=== PATIENT | male | born 1965 | race African-American/Black ===

== ENCOUNTER 2022-01-10 00:20 | Inpatient (IN) | payer OTHER ==
--- NOTE | 2022-01-10 01:55 | ED ---
Recheck HPI - General Chief Complaint: Extremity Problem,Nontraumatic Stated Complaint: Leg swelling,Cough Time Seen by Provider: 01/10/22 01:53 Source: patient, RN notes reviewed, old records reviewed Mode of arrival: ambulatory Limitations: no limitations - History of Present Illness Initial Comments: this is a 56-year-old male to the emergency departmentF for evaluation. Patient coming in for exam. Patient's presented today for evaluation chest pain lower extremity edema and pain MD Complaint: abnormal lab -: days(s) Returns Today for: persistent/worsening pain related to initial visit Symptoms Since Prior Visit: worsening pain, worsening swelling Associated Symptoms: none Treatments Prior to Arrival: other (0) - Related Data Allergies Allergy/AdvReac Type Severity Reaction Status Date / Time No Known Allergies Allergy Verified 01/10/22 00:40 Review of Systems ROS Statement: Those systems with pertinent positive or pertinent negative responses have been documented in the HPI. ROS Other: All systems not noted in ROS Statement are negative. Past Medical History Past Medical History: No Reported History History of Any Multi-Drug Resistant Organisms: None Reported Past Surgical History: No Surgical Hx Reported Past Psychological History: No Psychological Hx Reported Smoking Status: Current every day smoker Past Alcohol Use History: Occasional Past Drug Use History: None Reported General Exam Limitations: no limitations General appearance: alert, in no apparent distress Head exam: Present: atraumatic, normocephalic, normal inspection Eye exam: Present: normal appearance, PERRL, EOMI. Absent: scleral icterus, conjunctival injection, periorbital swelling ENT exam: Present: normal exam, mucous membranes moist Neck exam: Present: normal inspection. Absent: tenderness, meningismus, lymphadenopathy Respiratory exam: Present: normal lung sounds bilaterally, wheezes, decreased breath sounds. Absent: respiratory distress, rales, rhonchi, stridor Cardiovascular Exam: Present: normal rhythm, tachycardia, normal heart sounds. Absent: systolic murmur, diastolic murmur, rubs, gallop, clicks GI/Abdominal exam: Present: soft, normal bowel sounds. Absent: distended, tenderness, guarding, rebound, rigid Extremities exam: Present: tenderness, normal capillary refill, pedal edema, joint swelling. Absent: calf tenderness Back exam: Present: normal inspection Neurological exam: Present: alert, oriented X3, CN II-XII intact Psychiatric exam: Present: normal affect, normal mood Skin exam: Present: warm, dry, intact, normal color. Absent: rash Course Vital Signs 01/10/22 00:41 Temperature 97.8 F Pulse Rate 108 H Respiratory 22 Rate Blood Pressure 182/119 - Reevaluation(s) Reevaluation #1: 01/10/22 02:41 medical record is reviewed Reevaluation #2: 01/10/22 03:50 Symptoms unchanged here in the ER Reevaluation #3: 01/10/22 03:50 Patient informed results questions answered - Consultations Consultation #1: Spoke with bhavya who agreed to admit the patient Medical Decision Making - Medical Decision Making 56 male DF for evaluation of severe COPD, likely CHF severe bilateral traumatic edema swelling and pain. Patient will be admitted for diuresis and pain control - Lab Data Result diagrams: 01/10/22 01:24 01/10/22 01:24 Lab Results 01/10/22 01/10/22 01/10/22 Range/Units 01:24 01:24 01:24 WBC 6.1 (3.8-10.6) k/uL RBC 4.98 (4.30-5.90) m/uL Hgb 12.4 L (13.0-17.5) gm/dL Hct 40.6 (39.0-53.0) % MCV 81.6 (80.0-100.0) fL MCH 24.9 L (25.0-35.0) pg MCHC 30.5 L (31.0-37.0) g/dL RDW 18.0 H (11.5-15.5) % Plt Count 229 (150-450) k/uL MPV 9.8 Neutrophils % 58 % Lymphocytes % 26 % Monocytes % 8 % Eosinophils % 5 % Basophils % 2 % Neutrophils # 3.5 (1.3-7.7) k/uL Lymphocytes # 1.6 (1.0-4.8) k/uL Monocytes # 0.5 (0-1.0) k/uL Eosinophils # 0.3 (0-0.7) k/uL Basophils # 0.1 (0-0.2) k/uL Hypochromasia Marked Anisocytosis Slight Microcytosis Slight PT 12.7 H (9.0-12.0) sec INR 1.2 H (<1.2) APTT 24.7 (22.0-30.0) sec D-Dimer 1.26 H (<0.60) mg/L FEU Sodium 136 L (137-145) mmol/L Potassium 5.2 H (3.5-5.1) mmol/L Chloride 106 (98-107) mmol/L Carbon Dioxide 19 L (22-30) mmol/L Anion Gap 11 mmol/L BUN 19 (9-20) mg/dL Creatinine 0.91 (0.66-1.25) mg/dL Est GFR (CKD-EPI)AfAm >90 (>60 ml/min/1.73 sqM) Est GFR (CKD-EPI)NonAf >90 (>60 ml/min/1.73 sqM) Glucose 110 H (74-99) mg/dL Calcium 8.3 L (8.4-10.2) mg/dL Magnesium 1.6 (1.6-2.3) mg/dL Total Bilirubin 2.0 H (0.2-1.3) mg/dL AST 101 H (17-59) U/L ALT 28 (4-49) U/L Alkaline Phosphatase 327 H (38-126) U/L Troponin I (0.000-0.034) ng/mL NT-Pro-B Natriuret Pep pg/mL Total Protein 7.9 (6.3-8.2) g/dL Albumin 3.6 (3.5-5.0) g/dL 01/10/22 01/10/22 Range/Units 01:24 01:24 WBC (3.8-10.6) k/uL RBC (4.30-5.90) m/uL Hgb (13.0-17.5) gm/dL Hct (39.0-53.0) % MCV (80.0-100.0) fL MCH (25.0-35.0) pg MCHC (31.0-37.0) g/dL RDW (11.5-15.5) % Plt Count (150-450) k/uL MPV Neutrophils % % Lymphocytes % % Monocytes % % Eosinophils % % Basophils % % Neutrophils # (1.3-7.7) k/uL Lymphocytes # (1.0-4.8) k/uL Monocytes # (0-1.0) k/uL Eosinophils # (0-0.7) k/uL Basophils # (0-0.2) k/uL Hypochromasia Anisocytosis Microcytosis PT (9.0-12.0) sec INR (<1.2) APTT (22.0-30.0) sec D-Dimer (<0.60) mg/L FEU Sodium (137-145) mmol/L Potassium (3.5-5.1) mmol/L Chloride (98-107) mmol/L Carbon Dioxide (22-30) mmol/L Anion Gap mmol/L BUN (9-20) mg/dL Creatinine (0.66-1.25) mg/dL Est GFR (CKD-EPI)AfAm (>60 ml/min/1.73 sqM) Est GFR (CKD-EPI)NonAf (>60 ml/min/1.73 sqM) Glucose (74-99) mg/dL Calcium (8.4-10.2) mg/dL Magnesium (1.6-2.3) mg/dL Total Bilirubin (0.2-1.3) mg/dL AST (17-59) U/L ALT (4-49) U/L Alkaline Phosphatase (38-126) U/L Troponin I <0.012 (0.000-0.034) ng/mL NT-Pro-B Natriuret Pep 3610 pg/mL Total Protein (6.3-8.2) g/dL Albumin (3.5-5.0) g/dL - EKG Data -: EKG Interpreted by Me (EKG shows sinus tachycardia 107 VA 120 QRS 106 QTc 437) - Radiology Data Radiology results: report reviewed (Chest x-rays negative for acute disease), image reviewed Disposition Clinical Impression: Venous stasis, Edema of lower extremity, COPD exacerbation, CHF (congestive heart failure) Disposition: ADMITTED IP TO THIS [facility] Condition: Good Is patient prescribed a controlled substance at d/c from ED?: No Referrals: None,Stated [Primary Care Provider] - 1-2 days Time of Disposition: 03:50
[2022-01-10 02:18] LABS: Anisocytosis Slight; Basophils # (A) 0.1 k/uL (0-0.2); Basophils % (A) 2 %; Eosinophils # (A) 0.3 k/uL (0-0.7); Eosinophils % (A) 5 %; HCT 40.6 % (39.0-53.0); HGB 12.4 gm/dL (13.0-17.5); Hypochromasia Marked; Lymphocytes # (A) 1.6 k/uL (1.0-4.8); Lymphocytes % (A) 26 %; MCH 24.9 pg (25.0-35.0); MCHC 30.5 g/dL (31.0-37.0); MCV 81.6 fL (80.0-100.0); Mean Platelet Volume 9.8; Microcytosis Slight; Monocytes # (A) 0.5 k/uL (0-1.0); Monocytes % (A) 8 %; Neutrophils # (A) 3.5 k/uL (1.3-7.7); Neutrophils % (A) 58 %; Platelet Count 229 k/uL (150-450); RBC 4.98 m/uL (4.30-5.90); WBC 6.1 k/uL (3.8-10.6)
[2022-01-10 02:27] LABS: INR 1.2 (<1.2); Partial Thromboplastin Time 24.7 sec (22.0-30.0); Prothrombin Time 12.7 sec (9.0-12.0)
[2022-01-10 02:39] LABS: ALT 28 U/L (4-49); African American GFR (CKD) >90 (>60 ml/min/1.73 sqM); Anion Gap 11 mmol/L; Blood Urea Nitrogen 19 mg/dL (9-20); Calcium 8.3 mg/dL (8.4-10.2); Carbon Dioxide 19 mmol/L (22-30); Chloride 106 mmol/L (98-107); Glucose 110 mg/dL (74-99); Non-African American GFR(CKD) >90 (>60 ml/min/1.73 sqM); Sodium 136 mmol/L (137-145)
--- NOTE | 2022-01-10 02:39 | XR ---
EXAMINATION TYPE: XR chest 1V portable DATE OF EXAM: 01/10/2022 COMPARISON: NONE HISTORY: Short of breath. Cough TECHNIQUE: Single view FINDINGS: Heart is enlarged. No heart failure. There are no hilar masses lungs are clear of consolida tion. The bony thorax is intact. There are some calcified costal cartilage. IMPRESSION: Cardiomegaly. No active cardiopulmonary disease. No heart failure.
[2022-01-10 02:41] LABS: AST 101 U/L (17-59); Albumin 3.6 g/dL (3.5-5.0); Alkaline Phosphatase 327 U/L (38-126); Magnesium 1.6 mg/dL (1.6-2.3); Potassium 5.2 mmol/L (3.5-5.1); Total Protein 7.9 g/dL (6.3-8.2)
[2022-01-10] MEDS ORDERED: IPRATROPIUM-ALBUTEROL 3 ML NEB INHALATION PRN (03:40)
[2022-01-10] MEDS ORDERED: FUROSEMIDE 10 MG/ML 4 ML VIAL IV ONE (03:45)
[2022-01-10] MEDS ORDERED: MORPHINE SULFATE 4 MG/ML SYRINGE IV PRN (03:51)
--- NOTE | 2022-01-10 08:10 | US ---
EXAMINATION TYPE: US venous doppler duplex LE DATE OF EXAM: 01/10/2022 7:45 AM COMPARISON: NONE CLINICAL HISTORY: dvt. Bilateral leg swelling. No hx dvt. Not on blood thinners SIDE PERFORMED: Bilateral TECHNIQUE: The lower extremity deep venous system is examined utilizing real time linear array sonog cesar with graded compression, doppler sonography and color-flow sonography. VESSELS IMAGED: Common Femoral Vein Deep Femoral Vein Greater Saphenous Vein * Femoral Vein Popliteal Vein Small Saphenous Vein * Proximal Calf Veins (* superficial vessels) Bilateral groin lymph nodes seen Suboptimal visualization due to edema Right Leg: Negative for DVT Left Leg: Negative for DVT IMPRESSION: 1. Bilateral lower extremity ultrasound negative for deep venous thrombosis. 2. Inguinal lymphadenopathy is present.
--- NOTE | 2022-01-10 08:53 | P.CRDCN ---
History of Present Illness Consult date: 01/10/22 Chief complaint: Bilateral lower extremities edema History of present illness: The patient is a very pleasant 56-year-old -[place] gentleman with a past medical history significant for borderline diabetes and overweight who presented to the hospital complaining of bilateral lower extremities edema for the last the patient also has been experiencing cough not productive of any sputum. No chest pain or chest discomfort. He was experiencing with the edema he was experiencing increasing shortness of breath. He stated that he gained weight about 20 pounds within the last several months. No history of congestive heart failure. He decided to come to the emergency department for further investigation. He underwent an EKG which showed sinus tachycardia. NT proBNP came in to be elevated. He also had d-dimer came in to be elevated but no further investigation like computed tomography scan or VQ scan was done. The patient was seen and evaluated this morning. He definitely has severe bilateral lower extremities pitting edema. He does have diminished breathing sounds bilaterally but no crackles year. A chest x-ray did not show any evidence of heart failure. No history of congestive heart failure and no coronary artery disease or history of cardiomyopathy/CHF or cardiac arrhythmia and he never seen any industrial engineering analyst before. He was started on Lasix IV. An echocardiogram is also in process to be done later on today. Past Medical History Past Medical History: No Reported History History of Any Multi-Drug Resistant Organisms: None Reported Past Surgical History: No Surgical Hx Reported Past Psychological History: No Psychological Hx Reported Smoking Status: Current every day smoker Past Alcohol Use History: Occasional Past Drug Use History: None Reported Medications and Allergies Allergies Allergy/AdvReac Type Severity Reaction Status Date / Time No Known Allergies Allergy Verified 01/10/22 00:40 Physical Exam Vitals: Vital Signs Temp Pulse Resp BP 01/10/22 00:41 97.8 F 108 H 22 182/119 Intake and Output 01/09/22 01/10/22 01/10/22 22:59 06:59 14:59 Other: Weight 122.924 kg - Constitutional General appearance: no acute distress - Respiratory Respiratory: bilateral: CTA - Cardiovascular Rhythm: regular Abnormal Heart Sounds: systolic murmur Results 01/10/22 01:24 01/10/22 01:24 Cardiac Enzymes 01/10/22 01/10/22 Range/Units 01:24 01:24 AST 101 H (17-59) U/L Troponin I <0.012 (0.000-0.034) ng/mL Coagulation 01/10/22 Range/Units 01:24 PT 12.7 H (9.0-12.0) sec APTT 24.7 (22.0-30.0) sec CBC 01/10/22 Range/Units 01:24 WBC 6.1 (3.8-10.6) k/uL RBC 4.98 (4.30-5.90) m/uL Hgb 12.4 L (13.0-17.5) gm/dL Hct 40.6 (39.0-53.0) % Plt Count 229 (150-450) k/uL Comprehensive Metabolic Panel 01/10/22 Range/Units 01:24 Sodium 136 L (137-145) mmol/L Potassium 5.2 H (3.5-5.1) mmol/L Chloride 106 (98-107) mmol/L Carbon Dioxide 19 L (22-30) mmol/L BUN 19 (9-20) mg/dL Creatinine 0.91 (0.66-1.25) mg/dL Glucose 110 H (74-99) mg/dL Calcium 8.3 L (8.4-10.2) mg/dL AST 101 H (17-59) U/L ALT 28 (4-49) U/L Alkaline Phosphatase 327 H (38-126) U/L Total Protein 7.9 (6.3-8.2) g/dL Albumin 3.6 (3.5-5.0) g/dL Current Medications Generic Name Dose Route Start Last Admin Trade Name Freq PRN Reason Stop Dose Admin Albuterol/Ipratropium 3 ml 01/10/22 03:40 Ipratropium-Albuterol 3 Ml Neb INHALATION RT-QID PRN Shortness Of Breath Or Wheezing Furosemide 40 mg 01/10/22 08:00 Furosemide 10 Mg/Ml [address] [facility] Morphine Sulfate 4 mg 01/10/22 03:51 Morphine Sulfate 4 Mg/Ml Syringe IV Q4HR PRN Severe Pain (Scale 7 to 10) Intake and Output 01/09/22 01/10/22 01/10/22 22:59 06:59 14:59 Other: Weight 122.924 kg 01/10/22 01:24 01/10/22 01:24 Assessment and Plan Assessment: Assessment Severe bilateral lower extremities edema and shortness of breath Congestive heart failure exacerbation with evidence of right more than left hear t failure Abnormal d-dimer. Rule out pulmonary embolic Borderline diabetes Plan Rule out acute coronary event. Obtain serial cardiac enzymes Rule out pulmonary embolism. Obtain a CTA of the chest Continue IV diuretics for the lower extremities edema Obtain an echocardiogram was Doppler Follow-up with the patient
[2022-01-10] MEDS: FUROSEMIDE 10 MG/ML 4 ML VIAL IV SCH ×3 (08:58→23:12)
--- NOTE | 2022-01-10 09:48 | CT ---
CT CHEST FOR PULMONARY EMBOLISM. EXAMINATION TYPE: CT angio chest DATE OF EXAM: 01/10/2022 INDICATION: elevated d-dimer CT DLP: 643.9 mGycm, Automated exposure control for dose reduction was used. CONTRAST: Patient injected with 100 mL of Isovue 370. COMPARISON: None TECHNIQUE: CT of the chest is performed on a spiral scan at 2 mm thick sections. Study is performed with intravenous contrast timed for evaluation for pulmonary embolism. This will limit additional po rtions of the evaluation. 3-D MIP images reconstructed by the technologist are reviewed on the compu ter in the coronal and sagittal planes. FINDINGS: No persistent filling defects are evident to suggest an acute pulmonary embolism. No mediastinal or hilar adenopathy enlarged by CT criteria is evident. The ascending aorta diameter at the level of the main pulmonary artery is cm. The main pulmonary artery diameter at the bifurcati on is cm. There is a small right pleural effusion. Limited CT section through the upper abdomen are unremarkable. IMPRESSIONS: 1. No acute pulmonary embolism. 2. Small right pleural effusion
[2022-01-10] MEDS: carvediloL 12.5 MG TAB PO SCH ×2 (11:54→16:45)
[2022-01-10] MEDS ORDERED: NALOXONE 0.4 MG/ML 1 ML VIAL IV PRN (13:34)
[2022-01-10] MEDS ORDERED: ACETAMINOPHEN TAB 325 MG TAB PO PRN (13:34)
[2022-01-10] MEDS ORDERED: MORPHINE SULFATE 2 MG/ML SYRINGE IV PRN (13:36)
--- NOTE | 2022-01-10 13:37 | P.HPIM ---
History of Present Illness H&P Date: 01/10/22 Patient is a 56-year-old male with PMH of borderline hypertension and borderline diabetes mellitus the presents the ED for shortness of breath and lower extremity swelling. Patient reports lower extremity swelling that has been ongoing for the past. His swelling has extended up to his scrotum. 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 More recently, patient has been feeling fatigued and winded when doing simple things such as tying his shoes. He reports a cough productive of clear sputum. He denies any orthopnea. He denies any chest pain. He denies any headache, nausea or vomiting, fever or chills, lightheadedness, changes in urination or bowel h abits. No changes in appetite or weight. He denies any dizziness, numbness/weakness/tingling of the extremities. In the ED, he was noted to have a SBP as high as 182 and DBP as high as 124 with heart rate of low 100s. He was saturating high 90s on room air. CBC showed hemoglobin of 12.4 with MCV of 81.6. INR was 1.2. D-dimer was 1.26. CMP showed sodium of 136, potassium of 5.2, bicarb of 19, glucose of 110, calcium of 8.3, total bilirubin of 2, AST of 101 and alkaline phosphatase of 327. Troponin was less than 0.012, EKG showing sinus tachycardia with T-wave abnormalities. BNP was 3610. Chest x-ray showed cardiomegaly. Venous duplex negative for DVT but did show inguinal lymphade nopathy. CTA chest showed no PE but small right pleural effusion. Patient is admitted for CHF exacerbation with cardiology in consultation. Review of systems is performed and is negative except above. General: non toxic, no distress, appears at stated age Derm: warm, dry Head: atraumatic, normocephalic, symmetric Eyes: EOMI, no lid lag, anicteric sclera Mouth: no lip lesion, mucus membranes moist Cardiovascular: S1S2 reg, systolic murmur, positive posterior tibial pulse bilateral, Lungs: CTA bilateral, no rhonchi, no rales , no accessory muscle use Abdominal: soft, nontender to palpation, no guarding, no appreciable organomegaly Ext: no gross muscle atrophy, 3+ bilateral lower extremity edema, no contractures Neuro: CN II-XI grossly intact, no focal neuro deficits Psych: Alert, oriented, appropriate affect #CHF exacerbation, unknown EF #Hypertensive urgency #Elevated d-dimer #Normocytic anemia #Transaminitis #Hyperkalemia #Hyponatremia #Metabolic acidosis Patient presents with lower extremity swelling and shortness of breath has been ongoing for the past 2 weeks. His BNP is elevated. Symptoms concerning for right-sided heart failure. Patient be started on Lasix 40 mg IV 3 times a day. Strict intake and outtake will be ordered along with daily weights. Echocardiogram will be ordered. Maintain potassium greater than 4 and magnesium greater than 2. Cardiology has been consulted for further management of this patient. Patient is noted to have elevated BP with SBP as high as 182 and DBP as high as 124. He'll be started on Coreg 12.5 mg by mouth twice a day, lisinopril 10 mg by mouth daily, hydrochlorothiazide 12.5 mg by mouth daily. His vital signs are be monitored and medication adjusted if necessary. CTA chest was ruled out PE. His normocytic anemia is of unknown significance. He has no signs of active bleeding. We'll continue to monitor. He has obstructive LFTs. This is likely venous congestion from CHF. Liver and gallbladder ultrasound will be ordered. His hyperkalemia is due to hemolyzed specimen. Repeat BMP tomorrow morning. Patient has hypervolemic hyponatremia. Expected to improve with Lasix. DVT prophylaxis: Heparin Discussed with: Patient Anticipated discharge: 2-[address]: Home A total of 35 minutes was spent on the care of this complex patient more than 50% of the time was spent in counseling and care coordination. Past Medical History Past Medical History: No Reported History History of Any Multi-Drug Resistant Organisms: None Reported Past Surgical History: No Surgical Hx Reported Past Psychological History: No Psychological Hx Reported Smoking Status: Current every day smoker Past Alcohol Use History: Occasional Past Drug Use History: None Reported Medications and Allergies Home Medications Medication Instructions Recorded Confirmed Type Albuterol Sulfate [Proventil Hfa] 2 puff INHALATION RT-Q4H PRN 01/10/22 01/10/22 History Allergies Allergy/AdvReac Type Severity Reaction Status Date / Time No Known Allergies Allergy Verified 01/10/22 11:32 Physical Exam Vitals: Vital Signs Temp Pulse Resp BP Pulse Ox 01/10/22 13:17 98.5 F 88 18 175/111 99 10/29/22 10:55 89 18 169/124 99 01/10/22 09:00 90 18 166/122 100 01/10/22 00:41 97.8 F 108 H 22 182/119 Intake and Output 01/09/22 01/10/22 01/10/22 22:59 06:59 14:59 Other: Weight 122.924 kg Results CBC & Chem 7: 01/10/22 01:24 01/10/22 01:24 Labs: Abnormal Lab Results - Last 24 Hours (Table) 01/10/22 01/10/22 01/10/22 Range/Units 01:24 01:24 01:24 Hgb 12.4 L (13.0-17.5) gm/dL MCH 24.9 L (25.0-35.0) pg MCHC 30.5 L (31.0-37.0) g/dL RDW 18.0 H (11.5-15.5) % PT 12.7 H (9.0-12.0) sec INR 1.2 H (<1.2) D-Dimer 1.26 H (<0.60) mg/L FEU Sodium 136 L (137-145) mmol/L Potassium 5.2 H (3.5-5.1) mmol/L Carbon Dioxide 19 L (22-30) mmol/L Glucose 110 H (74-99) mg/dL Calcium 8.3 L (8.4-10.2) mg/dL Total Bilirubin 2.0 H (0.2-1.3) mg/dL AST 101 H (17-59) U/L Alkaline Phosphatase 327 H (38-126) U/L
[2022-01-10 14:42] VITALS: BMI 34.7
[2022-01-10] MEDS: LISINOPRIL-HCTZ 10-12.5 MG 1 EACH TAB PO SCH (14:48)
[2022-01-10] MEDS: HEPARIN SODIUM,PORCINE/PF 5,000 UNIT/0.5 ML SYRINGE SQ SCH ×2 (16:46→23:12)
[2022-01-11] MEDS: carvediloL 12.5 MG TAB PO SCH ×2 (06:13→16:48)
[2022-01-11 06:39] LABS: Anisocytosis Slight; Basophils % (A) 1 %; Eosinophils # (A) 0.4 k/uL (0-0.7); Eosinophils % (A) 8 %; HCT 37.5 % (39.0-53.0); HGB 11.6 gm/dL (13.0-17.5); Hypochromasia Marked; Lymphocytes # (A) 1.5 k/uL (1.0-4.8); Lymphocytes % (A) 30 %; MCH 25.2 pg (25.0-35.0); MCV 81.4 fL (80.0-100.0); Mean Platelet Volume 9.5; Microcytosis Slight; Monocytes # (A) 0.5 k/uL (0-1.0); Monocytes % (A) 10 %; Neutrophils # (A) 2.5 k/uL (1.3-7.7); Neutrophils % (A) 50 %; Platelet Count 213 k/uL (150-450); RBC 4.61 m/uL (4.30-5.90); RDW 17.9 % (11.5-15.5); WBC 5.1 k/uL (3.8-10.6)
[2022-01-11 06:59] LABS: Albumin 3.1 g/dL (3.5-5.0); Calcium 8.2 mg/dL (8.4-10.2); Potassium 3.7 mmol/L (3.5-5.1); Total Bilirubin 1.6 mg/dL (0.2-1.3); Total Protein 6.7 g/dL (6.3-8.2)
--- NOTE | 2022-01-11 07:42 | US ---
EXAMINATION TYPE: US liver DATE OF EXAM: 01/11/2022 COMPARISON: NONE CLINICAL HISTORY: Transaminitis. Abnormal labs. No pain. TECHNIQUE: Multiple sonographic images of the right upper quadrant are obtained. FINDINGS: EXAM MEASUREMENTS: Liver Length: 21.2 cm Gallbladder Wall: 0.3 cm CBD: 0.4 cm Right Kidney: 12.6 x 5.3 x 5.2 cm Pancreas: Tail obscured by overlying bowel gas, echogenic in appearance Liver: Enlarged in size Gallbladder: wnl Evidence for sonographic Acharya's sign: neg CBD: wnl Right Kidney: No hydronephrosis or masses seen IMPRESSION: 1. Hepatomegaly
[2022-01-11] MEDS: MAGNESIUM SULFATE-D5W PMX 1 GM in DEXTROSE/WATER 1 100ML.BAG IVPB SCH ×4 (09:21→14:51)
[2022-01-11] MEDS: FUROSEMIDE 10 MG/ML 4 ML VIAL IV SCH ×3 (09:21→23:06)
[2022-01-11] MEDS: LISINOPRIL-HCTZ 10-12.5 MG 1 EACH TAB PO SCH (09:22)
[2022-01-11] MEDS: HEPARIN SODIUM,PORCINE/PF 5,000 UNIT/0.5 ML SYRINGE SQ SCH ×3 (09:22→23:06)
--- NOTE | 2022-01-11 10:10 | P.PN ---
Subjective Progress Note Date: 01/11/22 Patient is a 56-year-old male with PMH of borderline hypertension and borderline diabetes mellitus the presents the ED for shortness of breath and lower extremity swelling. Patient reports lower extremity swelling that has been ongoing for the past. His swelling has extended up to his scrotum. 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 More recently, patient has been feeling fatigued and winded when doing simple things such as tying his shoes. He reports a cough productive of clear sputum. He denies any orthopnea. He denies any chest pain. He denies any headache, nausea or vomiting, fever or chills, lightheadedness, changes in urination or bowel habits. No changes in appetite or weight. He denies any dizziness, numbness/weakness/tingling of the extremities. In the ED, he was noted to have a SBP as high as 182 and DBP as high as 124 with heart rate of low 100s. He was saturating high 90s on room air. CBC showed hemoglobin of 12.4 with MCV of 8 1.6. INR was 1.2. D-dimer was 1.26. CMP showed sodium of 136, potassium of 5.2, bicarb of 19, glucose of 110, calcium of 8.3, total bilirubin of 2, AST of 101 and alkaline phosphatase of 327. Troponin was less than 0.012, EKG showing sinus tachycardia with T-wave abnormalities. BNP was 3610. Chest x-ray showed cardiomegaly. Venous duplex negative for DVT but did show inguinal lymphadenopathy. CTA chest showed no PE but small right pleural effusion. Patient is admitted for CHF exacerbation with cardiology in consultation. Patient was seen and examined. No acute events overnight. Lower extremity swelling improving. Scrotal swelling improving. Patient diuresing well. General: non toxic, no distress, appears at stated age Derm: warm, dry Head: atraumatic, normocephalic, symmetric Eyes: EOMI, no lid lag, anicteric sclera Mouth: no lip lesion, mucus membranes moist Cardiovascular: S1S2 reg, systolic murmur, positive posterior tibial pulse bilateral, Lungs: CTA bilateral, no rhonchi, no rales , no accessory muscle use Ext: no gross muscle atrophy, 3+ bilateral lower extremity edema, no contractures Neuro: no focal neuro deficits Psych: Alert, oriented, appropriate affect #CHF exacerbation, unknown EF #Hypomagnesemia #Hypertensive urgency #Elevated d-dimer #Normocytic anemia #Transaminitis Resolved: HypoK, Met acidosis, hypoNa Patient presents with lower extremity swelling and shortness of breath has been ongoing for the past 2 weeks. His BNP is elevated. Symptoms concerning for right-sided heart failure. Patient be started on Lasix 40 mg IV 3 times a day. Strict intake and outtake will be ordered along with daily weights. Echocardiogram will be ordered. Maintain potassium greater than 4 and magnesium greater than 2. Cardiology has been consulted for further management of this patient. Magnesium sulfate 4g IV ordered today. Repeat tomorrow. BP 150/84. He'll be started on Coreg 12.5 mg by mouth twice a day, lisinopril 10 mg by mouth daily, hydrochlorothiazide 12.5 mg by mouth daily. His vital signs are be monitored and medication adjusted if necessary. CTA chest was ruled out PE. His normocytic anemia is of unknown significance. He has no signs of active bleeding. We'll continue to monitor. He has obstructive LFTs. This is likely venous congestion from CHF. Liver US shows hepatomegaly. Objective - Vital Signs Vital signs: Vital Signs Temp 98.4 F 01/11/22 03:18 Pulse 71 01/11/22 03:18 Resp 18 01/11/22 03:18 BP 150/84 01/11/22 03:18 Pulse Ox 97 01/11/22 03:18 FiO2 Intake & Output 01/10/22 01/11/22 01/11/22 18:59 06:59 18:59 Intake Total 120 Output Total 2200 Balance -220 120 Weight 122.924 kg Intake: Oral 120 Output: Urine 2200 Other: # Voids 1 - Labs CBC & Chem 7: 01/11/22 05:53 01/11/22 05:53 Labs: Abnormal Lab Results - Last 24 Hours (Table) 01/11/22 01/11/22 Range/Units 05:53 05:53 Hgb 11.6 L (13.0-17.5) gm/dL Hct 37.5 L (39.0-53.0) % RDW 17.9 H (11.5-15.5) % Glucose 107 H (74-99) mg/dL Calcium 8.2 L (8.4-10.2) mg/dL Total Bilirubin 1.6 H (0.2-1.3) mg/dL Alkaline Phosphatase 266 H (38-126) U/L Albumin 3.1 L (3.5-5.0) g/dL
--- NOTE | 2022-01-11 14:46 | P.PN ---
Subjective Progress Note Date: 01/11/22 Principal diagnosis: Heart failure of unknown etiology The patient is a very pleasant 56-year-old -[place] gentleman with a past medical history significant for borderline diabetes and overweight who presented to the hospital complaining of bilateral lower extremities edema for the last the patient also has been experiencing cough not productive of any sputum. No chest pain or chest discomfort. He was experiencing with the edema he was experiencing increasing shortness of breath. He stated that he gained weight about 20 pounds within the last several months. No history of congestive heart failure. He decided to come to the emergency department for further in vestigation. He underwent an EKG which showed sinus tachycardia. NT proBNP came in to be elevated. He also had d-dimer came in to be elevated but no further investigation like computed tomography scan or VQ scan was done. The patient was seen and evaluated this morning. He definitely has severe bilateral lower extremities pitting edema. He does have diminished breathing sounds bilaterally but no crackles year. A chest x-ray did not show any evidence of heart failure. No history of congestive heart failure and no coronary artery disease or history of cardiomyopathy/CHF or cardiac arrhythmia and he never seen any cook fish eggs before. He was started on Lasix IV. An echocardiogram is also in process to be done later on today. 01/11/2022 The patient was seen and examined this morning. He continues to have bilateral lower extremities edema which has slightly improved. The shortness of breath is better as well. No symptoms of chest pain or chest discomfort. He diuresed very well overnight. He continues to be on Lasix IV which I will advise to continue for the next 24 hours at least. The echocardiogram showed severe cardiomyopathy with EF around 25% with moderate mitral regurgitation. His liver function tests are abnormal and is in process of having an ultrasound of the abdomen later on today. Because d-dimer came in to be abnormal CT of the chest was performed and came in to be unremarkable for pulmonary embolism. Objective - Vital Signs Vital signs: Vital Signs Temp 98.4 F 01/11/22 03:18 Pulse 71 01/11/22 03:18 Resp 18 01/11/22 03:18 BP 150/84 01/11/22 03:18 Pulse Ox 97 01/11/22 03:18 FiO2 Intake & Output 01/10/22 01/10/22 01/11/22 06:59 18:59 06:59 Output Total 1400 Balance -1400 Weight 122.924 kg 122.924 kg Output: Urine 1400 Other: # Voids 1 - Constitutional General appearance: Present: no acute distress - Respiratory Respiratory: bilateral: CTA - Cardiovascular Rhythm: regular Heart sounds: normal: S1, S2 - Labs CBC & Chem 7: 01/11/22 05:53 01/11/22 05:53 Assessment and Plan Assessment: Assessment Severe bilateral lower extremities edema and shortness of breath Congestive heart failure exacerbation with evidence of right more than left heart failure. Etiology still unknown at this point. Severe cardiomyopathy, differential diagnosis ischemic versus nonischemic and l ikely nonischemic Abnormal d-dimer. Rule out pulmonary embolic Borderline diabetes Plan Consider coronary angiogram either as an inpatient or outpatient to rule out severe CAD Continue IV Lasix for at least additional 24 hours Monitor the kidney function and electrolytes Follow-up with the patient
[2022-01-11] MEDS: SPIRONOLACTONE 25 MG TAB PO SCH (16:48)
[2022-01-12] MEDS: carvediloL 12.5 MG TAB PO SCH ×2 (06:26→15:41)
[2022-01-12] MEDS ORDERED: HEPARIN SODIUM,PORCINE 10,000 UNIT in SODIUM CHLORIDE 0.9% 1,000 ML IRRIGATION PRN (07:00)
[2022-01-12] MEDS ORDERED: HEPARIN SODIUM,PORCINE 2,500 UNIT in SODIUM CHLORIDE 0.9% 250 ML IRRIGATION PRN (07:00)
[2022-01-12] MEDS ORDERED: ALPRAZolam 0.25 MG TAB PO PRN (08:43)
[2022-01-12] MEDS ORDERED: NITROGLYCERIN SL TABS 0.4 MG TAB SUBLINGUAL PRN (08:43)
[2022-01-12] MEDS ORDERED: ALPRAZolam 0.5 MG TAB PO PRN (08:43)
[2022-01-12] MEDS: HEPARIN SODIUM,PORCINE/PF 5,000 UNIT/0.5 ML SYRINGE SQ SCH ×3 (08:50→23:42)
[2022-01-12] MEDS: FUROSEMIDE 10 MG/ML 4 ML VIAL IV SCH ×3 (08:55→23:42)
[2022-01-12] MEDS: SPIRONOLACTONE 25 MG TAB PO SCH (08:56)
[2022-01-12] MEDS: ASPIRIN 325 MG TAB PO STA ×2 (08:56→20:25)
[2022-01-12] MEDS: ATORVASTATIN 80 MG TAB PO STA ×2 (08:56→20:25)
[2022-01-12] MEDS ORDERED: LISINOPRIL-HCTZ 10-12.5 MG 1 EACH TAB PO SCH (09:00)
[2022-01-12 09:10] LABS: Calcium 8.4 mg/dL (8.4-10.2); Potassium 3.9 mmol/L (3.5-5.1)
--- NOTE | 2022-01-12 09:26 | P.PN ---
Subjective Progress Note Date: 01/12/22 PROGRESS NOTE The patient is a 56-year-old male with no prior documented history of CAD or CHF who presented with progressive dyspnea, peripheral edema and fatigue, was noted to be in CHF with evidence of severe cardiomyopathy. He is feeling better today but continues to be dyspneic. He continues to have peripheral edema. He denies any nausea or vomiting. He has no clear PND nor orthopnea. He continues to be in sinus mechanism. Medications: Aspirin, Lipitor 40 mg daily, Coreg 12-1/2 mg twice a day, lisinopril HCT 1012- 1/2 mg daily, spironolactone 25 mg daily PHYSICAL EXAMINATION: Blood pressure 146/90 heart rate 70 LUNGS: Clear to auscultation HEART: Regular rate and rhythm, S1, S2. No S3. systolic ejection murmur ABDOMEN: Soft, nontender, no organomegaly EXTREMETIES: 2+ edema LAB: Potassium 3.9, BUN 23, creatinine 1.18 IMPRESSION: 1. CHF with severe cardiomyopathy unknown etiology 2. Hypertension 3. History of smoking 4. Abnormal d-dimer with no evidence of pulmonary embolism PLAN: 1. Increase MATHEW inhibitor 2. Proceed with cardiac catheterization 3. Risks and complications were discussed with the patient who is in full agreement and understanding, the procedure will be done by Dr. Fernandez. 4. Add [facility] Objective - Vital Signs Vital signs: Vital Signs Temp 98.5 F 01/12/22 08:00 Pulse 71 01/12/22 08:00 Resp 18 01/12/22 08:00 BP 146/90 01/12/22 08:00 Pulse Ox 98 01/12/22 08:00 FiO2 21 01/11/22 19:20 Intake & Output 01/11/22 01/12/22 01/12/22 18:59 06:59 18:59 Intake Total 480 118 Output Total 900 Balance 480 -900 118 Weight 119.1 kg Intake: Oral 480 118 Output: Urine 900 Other: Voiding Method Urinal Urinal - Labs CBC & Chem 7: 01/11/22 05:53 01/12/22 07:46 Labs: Abnormal Lab Results - Last 24 Hours (Table) 01/12/22 Range/Units 07:46 Sodium 136 L (137-145) mmol/L Chloride 93 L (98-107) mmol/L Carbon Dioxide 34 H (22-30) mmol/L BUN 23 H (9-20) mg/dL Glucose 133 H (74-99) mg/dL
--- NOTE | 2022-01-12 09:31 | P.PN ---
Subjective Progress Note Date: 01/12/22 Patient is a 56-year-old male with PMH of borderline hypertension and borderline diabetes mellitus the presents the ED for shortness of breath and lower extremity swelling. Patient reports lower extremity swelling that has been ongoing for the past. His swelling has extended up to his scrotum. 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 More recently, patient has been feeling fatigued and winded when doing simple things such as tying his shoes. He reports a cough productive of clear sputum. He denies any orthopnea. He denies any chest pain. He denies any headache, nausea or vomiting, fever or chills, lightheadedness, changes in urination or bowel habits. No changes in appetite or weight. He denies any dizziness, numbness/weakness/tingling of the extremities. In the ED, he was noted to have a SBP as high as 182 and DBP as high as 124 with heart rate of low 100s. He was saturating high 90s on room air. CBC showed hemoglobin of 12.4 with MCV of 8 1.6. INR was 1.2. D-dimer was 1.26. CMP showed sodium of 136, potassium of 5.2, bicarb of 19, glucose of 110, calcium of 8.3, total bilirubin of 2, AST of 101 and alkaline phosphatase of 327. Troponin was less than 0.012, EKG showing sinus tachycardia with T-wave abnormalities. BNP was 3610. Chest x-ray showed cardiomegaly. Venous duplex negative for DVT but did show inguinal lymphadenopathy. CTA chest showed no PE but small right pleural effusion. Patient is admitted for CHF exacerbation with cardiology in consultation. Patient was seen and examined. No acute events overnight. Lower extremity swelling improving. Scrotal swelling improving. Patient diuresing well. Lost 4 kg so far. General: non toxic, no distress, appears at stated age Derm: warm, dry Head: atraumatic, normocephalic, symmetric Eyes: EOMI, no lid lag, anicteric sclera Mouth: no lip lesion, mucus membranes moist Cardiovascular: S1S2 reg, systolic murmur, positive posterior tibial pulse bilateral, Lungs: CTA bilateral, no rhonchi, no rales , no accessory muscle use Ext: no gross muscle atrophy, 3+ bilateral lower extremity edema, no contractures Neuro: no focal neuro deficits Psych: Alert, oriented, appropriate affect #CHF exacerbation, EF 25% #Hypomagnesemia #Hypertensive urgency #Elevated d-dimer #Normocytic anemia #Transaminitis Resolved: HypoK, Met acidosis, hypoNa Patient presents with lower extremity swelling and shortness of breath has been ongoing for the past 2 weeks. His BNP is elevated. Symptoms concerning for right-sided heart failure. Patient be started on Lasix 40 mg IV 3 times a day. Strict intake and outtake will be ordered along with daily weights. Echocardiogram shows EF of 25%, official report pending. Maintain potassium greater than 4 and magnesium greater than 2. Start Coreg, Lisinopril, Aldactone. Patient would benefit from AICD. Cardiology on board. Plans for cardiac cath tomorrow. Magnesium sulfate 4g IV ordered today. Repeat pending. BP 146/90. He'll be started on Coreg 12.5 mg by mouth twice a day, lisinopril 10 mg by mouth daily, hydrochlorothiazide 12.5 mg by mouth daily, Aldactone 25 mg by mouth daily. His vital signs are be monitored and medication adjusted if necessary. CTA chest was ruled out PE. His normocytic anemia is of unknown significance. He has no signs of active bleeding. We'll continue to monitor. He has obstructive LFTs. This is likely venous congestion from CHF. Liver US shows hepatomegaly. Objective - Vital Signs Vital signs: Vital Signs Temp 98.5 F 01/12/22 08:00 Pulse 71 01/12/22 08:00 Resp 18 01/12/22 08:00 BP 146/90 01/12/22 08:00 Pulse Ox 98 01/12/22 08:00 FiO2 21 01/11/22 19:20 Intake & Output 01/11/22 01/12/22 01/12/22 18:59 06:59 18:59 Intake Total 480 118 Output Total 900 Balance 480 -900 118 Weight 119.1 kg Intake: Oral 480 118 Output: Urine 900 Other: Voiding Method Urinal Urinal - Labs CBC & Chem 7: 01/11/22 05:53 01/12/22 07:46 Labs: Abnormal Lab Results - Last 24 Hours (Table) 01/12/22 Range/Units 07:46 Sodium 136 L (137-145) mmol/L Chloride 93 L (98-107) mmol/L Carbon Dioxide 34 H (22-30) mmol/L BUN 23 H (9-20) mg/dL Glucose 133 H (74-99) mg/dL
--- NOTE | 2022-01-12 10:13 | CA ---
Transthoracic Echo Report Name: Macario Jeter Age: 56 Gender: M : 1965 Exam Date: 01/10/2022 10:06 Exam Location: [place] [facility] Ht (in): 74 Wt (lb): 271 Ordering Physician: Warren Celaya DO Attending/Referring Phys: [id number], [employer] Erin Conroy RDCS Procedure CPT: Indications: Heart failure Cardiac Hx: Technical Quality: Fair Contrast 1: Total Dose (mL): Contrast 2: Total Dose (mL): MEASUREMENTS (Male / Female) Normal Values 2D ECHO LV Diastolic Diameter PLAX 5.9 cm 4.2 - 5.9 / 3.9 - 5.3 cm LV Systolic Diameter PLAX 5.8 cm IVS Diastolic Thickness 1.7 cm 0.6 - 1.0 / 0.6 - 0.9 cm LVPW Diastolic Thickness 1.9 cm 0.6 - 1.0 / 0.6 - 0.9 cm LV Relative Wall Thickness 0.6 RV Internal Dim ED PLAX 3.9 cm LA Systolic Diameter LX 4.8 cm 3.0 - 4.0 / 2.7 - 3.8 cm LV Diastolic Volume MOD BP 216.4 cm??? 67 - 155 / 56 - 104 cm??? LV Systolic Volume MOD BP 161.1 cm??? 22 - 58 / 19 - 49 cm??? LV Ejection Fraction MOD BP 25.5 % >= 55 % LV Cardiac Index MOD BP 1870.6 cm???/min???m??? LV Diastolic Volume MOD 4C 175.1 cm??? LV Systolic Volume MOD 4C 137.9 cm??? LV Ejection Fraction MOD 4C 21.2 % LV Cardiac Index MOD 4C 1257.4 cm???/min???m??? LV Diastolic Length 4C 9.4 cm LV Systolic Length 4C 8.7 cm LV Diastolic Volume MOD 2C 261.2 cm??? LV Systolic Volume MOD 2C 173.8 cm??? LV Ejection Fraction MOD 2C 33.5 % LV Cardiac Index MOD 2C 2957.4 cm???/min???m??? LV Diastolic Length 2C 9.8 cm LV Systolic Length 2C 7.9 cm LA Volume 98.3 cm??? 18 - 58 / 22 - 52 cm??? M-MODE Aortic Root Diameter MM 3.4 cm AV Cusp Separation MM 2.3 cm DOPPLER AV Peak Velocity 94.4 cm/s AV Peak Gradient 3.6 mmHg LVOT Peak Velocity 82.9 cm/s LVOT Peak Gradient 2.8 mmHg TR Peak Velocity 281.4 cm/s TR Peak Gradient 31.7 mmHg Right Atrial Pressure 20.0 mmHg Pulmonary Artery Systolic Pressu 51.7 mmHg Right Ventricular Systolic Press 51.7 mmHg FINDINGS Left Ventricle Moderately increased septal wall thickness. Severely increased left ventricular diastolic volume. Severely increased left ventricular systolic volume. Severely decreased left ventricular ejection fraction. Left ventricular ejection fraction is estimated at 20-25 %. Right Ventricle Mild right ventricular dilatation. Moderate to severe pulmonary hypertension. Right Atrium Severe right atrial dilatation. Left Atrium Moderately increased left atrial diameter. Severely increased left atrial volume. Mitral Valve Structurally normal mitral valve. Mitral valve thickened. Mild mitral annular calcification. Moderate mitral regurgitation. Aortic Valve No aortic stenosis. Trace to mild aortic regurgitation. Aortic valve sclerosis. Tricuspid Valve Moderate tricuspid regurgitation. Pulmonic Valve Trace pulmonic regurgitation. Pericardium Small circumferential pericardial effusion. Aorta Normal size aortic root and proximal ascending aorta. CONCLUSIONS Severe LV dilation and LV dysfunction with EF between 30-20-25% Moderate mitral regurgitation Moderate tricuspid regurgitation Moderate pulmonary hypertension Small circumferential pericardial effusion Previewed by: Dr. Sammy Fernandez MD (Electronically Signed) Final Date: 11 January 2022 10:16
[2022-01-12] MEDS: DAPAGLIFLOZIN PROPANEDIOL 10 MG TABLET PO SCH (12:46)
[2022-01-12] MEDS: lisinopriL 10 MG TAB PO SCH (20:34)
[2022-01-13] MEDS: ASPIRIN 325 MG TAB PO STA (06:14)
[2022-01-13] MEDS: ATORVASTATIN 80 MG TAB PO STA (06:15)
[2022-01-13] MEDS: FUROSEMIDE 10 MG/ML 4 ML VIAL IV SCH ×2 (06:19→20:08)
[2022-01-13] MEDS: carvediloL 12.5 MG TAB PO SCH ×2 (06:19→16:28)
[2022-01-13] MEDS: HEPARIN SODIUM,PORCINE/PF 5,000 UNIT/0.5 ML SYRINGE SQ SCH ×3 (06:19→23:30)
[2022-01-13] MEDS: ASPIRIN 81 MG PO SCH (06:20)
[2022-01-13] MEDS: lisinopriL 10 MG TAB PO SCH ×2 (06:20→20:08)
[2022-01-13] MEDS: ATORVASTATIN 40 MG TAB PO SCH (06:20)
[2022-01-13] MEDS: SPIRONOLACTONE 25 MG TAB PO SCH (06:20)
[2022-01-13] MEDS: DAPAGLIFLOZIN PROPANEDIOL 10 MG TABLET PO SCH (08:41)
[2022-01-13 11:11] LABS: Calcium 8.4 mg/dL (8.4-10.2)
--- NOTE | 2022-01-13 11:29 | P.PN ---
Subjective Progress Note Date: 01/13/22 Patient had breakfast this morning at 7:30, has a heart catheterization scheduled for 12:30. Patient has no complaints at this time. Denies any chest pain. Blood pressures are improved. Gen: awake, alert HEENT: normocephalic, atraumatic, good hearing acuity, moist mucous membranes Resp: good air exchange, breathing comfortably with no accessory muscle use, clear to auscultation bilaterally CVS: good distal perfusion x 4, regular rate and rhythm without any murmurs GI: soft, NTTP, ND : no SPT, no CVAT, brink catheter not present MSK: no pitting edema, no clubbing Neuro: non-focal, moving all extremities Psych: cooperative, euthymic mood Assessment/plan: #CHF exacerbation, EF 25% #Hypomagnesemia #Hypertensive urgency #Elevated d-dimer #Normocytic anemia #Transaminitis Resolved: HypoK, Met acidosis, hypoNa Patient presents with lower extremity swelling and shortness of breath has been ongoing for the past 2 weeks. His BNP is elevated. Symptoms concerning for right-sided heart failure. Patient be started on Lasix 40 mg IV 3 times a day. Strict intake and outtake will be ordered along with daily weights. Echocardiogram shows EF of 25%, official report pending. Maintain potassium greater than 4 and magnesium greater than 2. Start Coreg, Lisinopril, Aldactone. Patient would benefit from AICD if no improvement in 3 months of medical therapy with lisinopril, coreg, and spironolactone. Cardiology on board. Plans for cardiac cath. He has obstructive LFTs. This is likely venous congestion from CHF. Liver US shows hepatomegaly. Objective - Vital Signs Vital signs: Vital Signs Temp 98.2 F 01/13/22 08:40 Pulse 67 01/13/22 08:40 Resp 16 01/13/22 08:40 BP 136/84 01/13/22 08:40 Pulse Ox 94 L 01/13/22 08:40 FiO2 21 01/11/22 19:20 Intake & Output 01/12/22 01/13/22 01/13/22 18:59 06:59 18:59 Intake Total 354 118 Balance 354 118 Weight 115 kg Intake: Oral 354 118 Other: Voiding Method Toilet Toilet - Labs CBC & Chem 7: 01/11/22 05:53 01/13/22 10:03 Labs: Abnormal Lab Results - Last 24 Hours (Table) 01/13/22 Range/Units 10:03 Sodium 136 L (137-145) mmol/L Chloride 91 L (98-107) mmol/L Carbon Dioxide 35 H (22-30) mmol/L BUN 25 H (9-20) mg/dL Glucose 122 H (74-99) mg/dL
[2022-01-13] MEDS ORDERED: VERAPAMIL 2.5 MG/ML 2 ML AMP ONE (11:59)
[2022-01-13] MEDS ORDERED: HEPARIN SODIUM 1,000 UN/ML (10ML VL) ONE (12:16)
[2022-01-13] MEDS ORDERED: SODIUM CHLORIDE 0.9% 1,000 ML IV ONE (12:18)
[2022-01-13] MEDS ORDERED: MIDAZOLAM 2 MG/2 ML VIAL IV ONE ×2 (12:34→13:00)
[2022-01-13] MEDS ORDERED: LIDOCAINE 1% INJ 10MG/ML (30 ML VIAL-PF) SQ ONE (12:37)
[2022-01-13] MEDS: VERAPAMIL SYRINGE (5 MG/10 ML) INTRAARTER ONE ×2 (12:38→13:00)
[2022-01-13] MEDS ORDERED: niCARdipine 25 MG/10 ML VIAL ONE (12:47)
[2022-01-13] MEDS: HEPARIN SODIUM 1,000 UN/ML (10ML VL) IV ONE ×2 (12:47→13:00)
[2022-01-13] MEDS ORDERED: niCARdipine Syringe (1,000 mcg/10 mL) INTRACORON ONE (12:50)
[2022-01-13] MEDS: NITROGLYCERIN 1000MCG/10ML SYRINGE INTRACORON ONE ×2 (12:50→13:35)
[2022-01-13] MEDS ORDERED: HYDROmorphone 0.5 MG/0.5 ML SYRINGE IVP ONE (13:12)
[2022-01-13] MEDS ORDERED: IOPAMIDOL-370 125ML BTL INJ ONE (13:21)
[2022-01-13] MEDS ORDERED: CLOPIDOGREL 75 MG TAB ONE (13:27)
[2022-01-13] MEDS ORDERED: CLOPIDOGREL 75 MG TAB PO ONE (13:29)
[2022-01-13] MEDS ORDERED: ZOLPIDEM 5 MG TAB PO PRN (13:51)
[2022-01-13] MEDS ORDERED: RX INFO: IV CONTRAST WAS GIVEN 1 EACH MISC MISCELLANE PRN (13:51)
[2022-01-13] MEDS ORDERED: MAG HYDROX/AL HYDROX/SIMETH 30 ML CUP PO PRN (13:51)
[2022-01-13] MEDS ORDERED: ATROPINE SULFATE 0.1 MG/ML 10ML SYRINGE IV PRN (13:51)
[2022-01-13] MEDS ORDERED: SODIUM CHLORIDE 0.9% 1,000 ML in EMPTY BAG 1 BAG IV SCH (14:00)
--- NOTE | 2022-01-13 20:54 | P.PCN ---
Date of Procedure: 01/13/22 Operative Findings: CARDIAC CATHETERIZATION AND PERCUTANEOUS CORONARY INTERVENTION PERFORMING PHYSICIAN: Sammy Fernandez MD, VI PROCEDURE PERFORMED: 1. Selective right and left coronary angiogram 2. Left heart catheterization 3. Successful stenting of the proximal right coronary artery using 4.0 x 28 mm Xience JAZMINE which was postdilated using 5 mm noncompliant balloon with an excellent angiographic results and reduction of stenosis from 99% to 0% 4. Intravascular ultrasound of the right coronary artery 5. Ultrasound-guided access of the right common femoral artery INDICATION: This is a pleasant 56-year-old gentleman who presented to the hospital with shortness of breath and lower extremities edema and he was diagnosed with heart failure. He underwent an echocardiogram which revealed cardiomyopathy. In the light of that heart catheterization was advised COMPLICATION: None APPROACH: Right radial artery LEVEL OF SEDATION: Moderate with a sedation length of 62 minutes PROCEDURE DESCRIPTION: After obtaining an informed consent, the patient was brought to cardiac laboratory associate. Local anesthesia was performed using lidocaine subcutaneously. The right radial artery was cannulated using Seldinger technique, the guidewire passed easily, following that we advanced a 5-Eritrean sheath dilator assembly, the wire and dilator were removed and sheath was flushed. Following that, 2 mg of verapamil along with 5000 unit heparin were given. Selective right and left coronary angiogram using a 6-Eritrean JR4 and JL 3.5 catheters. Following that we did left heart catheterization using 6-Eritrean pigtail catheter. After that I did intervene on the RCA. The procedure was completed there was no complication. SELECTIVE CORONARY ANGIOGRAM: The right coronary artery: Large-caliber vessel and dominant vessel. The RCA is subtotally occluded in the proximal portion. It fills by collateral from the left coronary system Left main: Angiographically normal and bifurcates into LCx and LAD The left circumflex: Large-caliber vessel and codominant vessel. The LCx has mild disease only with gives rise into the first and second obtuse marginal branches both appeared to be angiographically normal and distally bifurcates into PDA and PLV branches and both appeared to be angiographically normal The left anterior descending artery: Large-caliber vessel. Appeared to have mild disease only. Give stress into a large diagonal branch which appeared to have a lesion in the proximal portion appeared to be in the range of 60-70%. HEMODYNAMICS: The LVEDP was 25 mmHg was no significant gradient across aortic valve PCI OF THE RCA: Anticoagulation was initiated using heparin with continuous ACT monitoring throughout the case. The patient was given a total of 10,000 use of heparin IV. After that I did engage the RCA using an AL 0.75 guiding catheter. I did wire the right coronary artery using a whisper wire with the backup support of super cross catheter. Subsequently the wire was advanced to the distal right coronary artery. After that I did balloon angioplasty of the right coronary artery initially using 2.5 mm balloon. Attempting doing balloon angioplasty using 3.0 mm balloon was unsuccessful because the balloon will not stay at the lesion level and keep moving either backward or forward. At that point I attempted doing a balloon angioplasty using this time a cutting balloon. The balloon would not cross the lesion. It would not cross the lesion in spite of using guide liner. At that point I went back with a 3 mm balloon which was a regular balloon and I was able to do slow inflation until I was able to balloon angioplasty the lesion. Angiographically the artery appeared to be about 2.5-3 mm diameter but by doing intravascular ultrasound it showed that the artery was about 4.5 mm in diameter. So I deployed a 4.0 x 28 mm stent or the stent was positioned under fluoroscopy guidance and deployed under 14 arnulfo for 20 seconds. I post dilated the stent using 5 mm balloon. Final angiogram showed good angiographic results and there was intermediate to severe lesion involving the RCA distally I decided to treat medically CONCLUSION: 1. Subtotally occluded RCA in the proximal portion and perform successful stenting. The RCA still have intermediate to severe lesion in the midportion 2. Intermediate to severe disease involving a large first diagonal branch 3. Elevated left-side filling pressure POSTPROCEDURE MANAGEMENT: Dual antiplatelet therapy with aspirin and Plavix for at least 12 months Aggressive cholesterol control Risk factors modification Follow-up with the patient
[2022-01-14] MEDS: carvediloL 12.5 MG TAB PO SCH (06:28)
[2022-01-14] MEDS: ASPIRIN 81 MG PO SCH (08:34)
[2022-01-14] MEDS: HEPARIN SODIUM,PORCINE/PF 5,000 UNIT/0.5 ML SYRINGE SQ SCH (08:34)
[2022-01-14] MEDS: FUROSEMIDE 10 MG/ML 4 ML VIAL IV SCH (08:34)
[2022-01-14] MEDS: SPIRONOLACTONE 25 MG TAB PO SCH (08:35)
[2022-01-14] MEDS: lisinopriL 10 MG TAB PO SCH (08:35)
[2022-01-14] MEDS: ATORVASTATIN 40 MG TAB PO SCH (08:35)
[2022-01-14] MEDS: DAPAGLIFLOZIN PROPANEDIOL 10 MG TABLET PO SCH (08:36)
[2022-01-14 09:00] LABS: Calcium 8.4 mg/dL (8.4-10.2); Potassium 4.6 mmol/L (3.5-5.1)
[2022-01-14] MEDS ORDERED: CLOPIDOGREL 75 MG TAB PO SCH (09:00)
[2022-01-14 09:31] VITALS: BP 146/89; PULSE 68; RESP 17; TEMP 98.3
[2022-01-14 09:37] LABS: Anisocytosis Slight; Basophils # (A) 0.1 k/uL (0-0.2); Basophils % (A) 1 %; Eosinophils # (A) 0.3 k/uL (0-0.7); Eosinophils % (A) 5 %; HCT 40.1 % (39.0-53.0); HGB 12.8 gm/dL (13.0-17.5); Hypochromasia Moderate; Lymphocytes # (A) 1.9 k/uL (1.0-4.8); Lymphocytes % (A) 33 %; MCH 25.7 pg (25.0-35.0); MCV 80.1 fL (80.0-100.0); Mean Platelet Volume 10.3; Microcytosis Slight; Monocytes # (A) 0.5 k/uL (0-1.0); Monocytes % (A) 9 %; Neutrophils # (A) 2.8 k/uL (1.3-7.7); Neutrophils % (A) 47 %; Platelet Count 179 k/uL (150-450); RDW 17.9 % (11.5-15.5); WBC 5.9 k/uL (3.8-10.6)
--- NOTE | 2022-01-14 11:25 | P.DS ---
Providers Date of admission: 01/10/22 03:40 Expected date of discharge: 01/14/22 Attending physician: Shailesh Herrera MD Consults: 01/10/22 03:40 Consult Physician Routine Consulting Provider: Feng Diaz Consult Reason/Comments: chf Do you want consulting provider notified?: Yes 01/13/22 13:51 Consult Physician Routine Consulting Provider: [facility] Consult Reason/Comments: Post Interventional Patient Do you want consulting provider notified?: Already Contacted Primary care physician: Stated None Hospital Course: #CHF exacerbation, EF 25% #CAD s/p PCI to RCA #Hypomagnesemia #Hypertensive urgency #Elevated d-dimer #Normocytic anemia #Transaminitis Patient is a 56-year-old male with PMH of borderline hypertension and borderline diabetes mellitus the presents the ED for shortness of breath and lower extremity swelling. In the ED, he was noted to have a SBP as high as 182 and DBP as high as 124 with heart rate of low 100s. He was saturating high 90s on room air. CBC showed hemoglobin of 12.4 with MCV of 81.6. INR was 1.2. D- dimer was 1.26. CMP showed sodium of 136, potassium of 5.2, bicarb of 19, glucose of 110, calcium of 8.3, total bilirubin of 2, AST of 101 and alkaline phosphatase of 327. Troponin was less than 0.012, EKG showing sinus tachycardia with T-wave abnormalities. BNP was 3610. Chest x-ray showed cardiomegaly. Venous duplex negative for DVT but did show inguinal lymphadenopathy. CTA chest showed no PE but small right pleural effusion. Patient is admitted for CHF exacerbation with cardiology in consultation. Echocardiogram demonstrated an ejection fraction 20-25%. Patient underwent left heart catheterization and was found to have an RCA lesion which was intervened upon with drug-eluting stent; he continues to have a mid RCA lesion which was not revascularized. Patient was doing well on the day following his left heart catheterization, and he was ultimately discharged on medications for CAD as well as goal-directed medical therapy for heart failure. He'll follow-up with cardiology in 1 week as well as his primary care physician the next 1-2 days. I spent 38 minutes coordinating this complex discharge, discharge date 01/14. Gen: awake, alert HEENT: normocephalic, atraumatic, good hearing acuity, moist mucous membranes Resp: good air exchange, breathing comfortably with no accessory muscle use, clear to auscultation bilaterally CVS: good distal perfusion x 4, regular rate and rhythm without any murmurs GI: soft, NTTP, ND : no SPT, no CVAT, brink catheter not present MSK: no pitting edema, no clubbing Neuro: non-focal, moving all extremities Psych: cooperative, euthymic mood Patient Condition at Discharge: Good Plan - Discharge Summary Discharge Rx Participant: No New Discharge Prescriptions: New Aspirin 81 mg PO DAILY #90 tab carvediloL [Coreg*] 25 mg PO BID-W/MEALS #180 tab Dapagliflozin Propanediol [Farxiga] 10 mg PO DAILY #90 tab Furosemide [Lasix] 40 mg PO DAILY #90 tab Nitroglycerin Sl Tabs [Nitrostat] 0.4 mg SUBLINGUAL Q5M PRN #100 tab PRN Reason: Chest Pain Clopidogrel [Plavix] 75 mg PO DAILY #90 tab lisinopriL [Zestril] 10 mg PO BID #180 tab Spironolactone [Aldactone] 25 mg PO DAILY #90 tab Atorvastatin [Lipitor] 40 mg PO DAILY #90 tab Acetaminophen Tab [Tylenol] 650 mg PO Q6HR PRN tab PRN Reason: Mild Pain Or Fever > 100.5 Continue Albuterol Sulfate [Proventil Hfa] 2 puff INHALATION RT-Q4H PRN PRN Reason: Shortness Of Breath Discharge Medication List Albuterol Sulfate [Proventil Hfa] 2 puff INHALATION RT-Q4H PRN 01/10/22 [History] Acetaminophen Tab [Tylenol] 650 mg PO Q6HR PRN tab 01/14/22 [Rx] Aspirin 81 mg PO DAILY #90 tab 01/14/22 [Rx] Atorvastatin [Lipitor] 40 mg PO DAILY #90 tab 01/14/22 [Rx] Clopidogrel [Plavix] 75 mg PO DAILY #90 tab 01/14/22 [Rx] Dapagliflozin Propanediol [Farxiga] 10 mg PO DAILY #90 tab 01/14/22 [Rx] Furosemide [Lasix] 40 mg PO DAILY #90 tab 01/14/22 [Rx] Nitroglycerin Sl Tabs [Nitrostat] 0.4 mg SUBLINGUAL Q5M PRN #100 tab 01/14/22 [Rx] Spironolactone [Aldactone] 25 mg PO DAILY #90 tab 01/14/22 [Rx] carvediloL [Coreg*] 25 mg PO BID-W/MEALS #180 tab 01/14/22 [Rx] lisinopriL [Zestril] 10 mg PO BID #180 tab 01/14/22 [Rx] Follow up Appointment(s)/Referral(s): Sammy Fernandez MD [STAFF PHYSICIAN] - 1 Week (Spoke to secretary receptionist, Office will call with appointment time. ) None,Stated [Primary Care Provider] - 1-2 days (Please find and schedule follow up with PCP. ) Patient Instructions/Handouts: *Sur[facility] - After Heart Catheterization - [place] Instructions, Spironolactone (By mouth), Lisinopril (By mouth), Aspirin (By mouth), Nitroglycerin, Rapid Release (By mouth), Atorvastatin (By mouth), Carvedilol (By mouth), Clopidogrel (By mouth), Dapagliflozin (By mouth), Heart Failure (DC), Coronary Artery Disease (DC) Activity/Diet/Wound Care/Special Instructions: be careful not to miss doses of aspirin or plavix Discharge Disposition: HOME SELF-CARE
--- NOTE | 2022-01-14 11:33 | P.PN ---
Subjective Progress Note Date: 01/14/22 HISTORY OF PRESENT ILLNESS: Patient is s/p cardiac cath with stenting of the RCA. Patient examined this morning at the bedside. Patient denies chest pain or pressure. Denies SOB. He r emains on IV lasix. He has been ambulating to the bathroom without difficulty. Vital signs are stable. PHYSICAL EXAM: VITAL SIGNS: Reviewed. GENERAL: Well-developed in no acute distress. NECK: Supple. No JVD or thyromegaly LUNGS: Respirations even and unlabored. Lungs essentially clear to auscultation bilaterally. HEART: Regular rate and rhythm. S1 and S2 heard. EXTREMITIES: Normal range of motion. No clubbing or cyanosis. Peripheral pulses intact. 1+ bilateral lower extremity edema ASSESSMENT: Acute heart failure with reduced EF Ischemic cardiomyopathy Coronary artery disease, s/p PCI or RCA Hypertension Hyperlipidemia Diabetes PLAN: Continue current cardiac medications Continue dual antiplatelet therapy Patient may be discharged home today from a cardiac standpoint and follow up on an outpatient basis Nurse practitioner note has been reviewed by physician. Signing provider agrees with the documented findings, assessment, and plan of care. Objective - Vital Signs Vital signs: Vital Signs Temp 98.3 F 01/14/22 08:30 Pulse 68 01/14/22 08:30 Resp 17 01/14/22 08:30 BP 146/89 01/14/22 08:30 Pulse Ox 97 01/14/22 08:30 FiO2 21 01/14/22 08:28 Intake & Output 01/13/22 01/14/22 01/14/22 18:59 06:59 18:59 Intake Total 118 236 Balance 118 236 Weight 112.7 kg Intake: Oral 118 236 Other: Voiding Method Toilet Toilet Toilet - Labs CBC & Chem 7: 01/14/22 07:38 01/14/22 07:38 Labs: Abnormal Lab Results - Last 24 Hours (Table) 01/14/22 01/14/22 Range/Units 07:38 07:38 Hgb 12.8 L (13.0-17.5) gm/dL RDW 17.9 H (11.5-15.5) % Sodium 136 L (137-145) mmol/L Chloride 94 L (98-107) mmol/L Carbon Dioxide 32 H (22-30) mmol/L BUN 24 H (9-20) mg/dL Creatinine 1.28 H (0.66-1.25) mg/dL Glucose 112 H (74-99) mg/dL
[2022-01-14] MEDS ORDERED: carvediloL 12.5 MG TAB PO SCH (17:30)
[2022-01-15] MEDS ORDERED: FUROSEMIDE 40 MG TAB PO SCH (09:00)
== END 2022-01-14 12:35 | disposition home or self-care (01) | DRG 246 ==
LOC: EC 00:20 → 3SCARD 03:40
PROVIDERS: ADMIT Internal Medicine; ATTEND Internal Medicine
PROC: 027034Z Dilation of Coronary Artery, One Artery with Drug-eluting Intraluminal Device, Percutaneous Approach (ICD-10-PCS; principal; 2022-01-13 12:00)
PROC: B2111ZZ Fluoroscopy of Multiple Coronary Arteries using Low Osmolar Contrast (ICD-10-PCS; 2022-01-13 12:00)
PROC: 4A023N7 Measurement of Cardiac Sampling and Pressure, Left Heart, Percutaneous Approach (ICD-10-PCS; 2022-01-13 12:00)
DX: I11.0 Hypertensive heart disease with heart failure (principal); I50.21 Acute systolic (congestive) heart failure; I31.39 Other pericardial effusion (noninflammatory); E87.20 Acidosis, unspecified; E87.1 Hypo-osmolality and hyponatremia; J44.1 Chronic obstructive pulmonary disease with (acute) exacerbation; I27.20 Pulmonary hypertension, unspecified; Z68.31 Body mass index [BMI] 31.0-31.9, adult; I16.0 Hypertensive urgency; D64.9 Anemia, unspecified; I08.3 Combined rheumatic disorders of mitral, aortic and tricuspid valves; R16.0 Hepatomegaly, not elsewhere classified; I25.10 Atherosclerotic heart disease of native coronary artery without angina pectoris; F17.210 Nicotine dependence, cigarettes, uncomplicated; R00.0 Tachycardia, unspecified; I87.8 Other specified disorders of veins; E66.3 Overweight; R73.03 Prediabetes; M79.89 Other specified soft tissue disorders; R59.0 Localized enlarged lymph nodes; R79.89 Other specified abnormal findings of blood chemistry; R74.01 Elevation of levels of liver transaminase levels; E87.5 Hyperkalemia; N50.89 Other specified disorders of the male genital organs; E83.42 Hypomagnesemia; E87.6 Hypokalemia; I25.5 Ischemic cardiomyopathy; E78.5 Hyperlipidemia, unspecified; Z28.310 Unvaccinated for COVID-19
CPT/HCPCS: 36415; 71045; 71275; 76705; 76937; 80048; 80053; 83735; 83880; 84484; 85025; 85379; 85610; 85730; 92978; 93005; 93306; 93458; 93970; 94640; 94760; 96374; 99285

== ENCOUNTER 2023-12-24 13:39 | Inpatient (IN) | payer MEDICAID, OTHER ==
[2023-12-24 14:44] LABS: Amorphous Sediment,Urine Rare /hpf; Appearance,Urine Cloudy (Clear); Bilirubin,Urine 1+ (Negative); Blood,Urine Negative (Negative); Cellular Casts,Urine 3 /lpf (0); Color,Urine Yellow; Glucose,Urine (UA) Negative (Negative); Hyaline Casts,Urine 13 /lpf (0-2); Ketones,Urine Trace (Negative); Leukocyte Esterase,Urine Negative (Negative); Mucus,Urine Moderate /hpf; Nitrite,Urine Negative (Negative); PH, Urine 5.5 (5.0-8.0); Protein,Urine 1+ (Negative); RBC,Urine 3 /hpf (0-5); Specific Gravity,Urine 1.027 (1.001-1.035); Squamous Epithelial Cell,Urine <1 /hpf (0-4); WBC,Urine 4 /hpf (0-5)
[2023-12-24 14:49] LABS: Amphetamine Screen,Urine Not Detected (NotDetected); Barbiturate Screen,Urine Not Detected (NotDetected); Benzodiazepines Screen,Urine Not Detected (NotDetected); Cocaine Screen,Urine Not Detected (NotDetected); Methadone Screen, Urine Not Detected (NotDetected); Opiate Screen,Urine Not Detected (NotDetected); Oxycodone Screen, Urine Not Detected (NotDetected); Phencyclidine Screen,Urine Not Detected (NotDetected); Tricyclic Antidepressant,Urine Not Detected (NotDetected); Urn Cannabinoid Scrn Detected (NotDetected)
--- NOTE | 2023-12-24 16:18 | ED ---
Psych HPI - General Chief Complaint: Psychiatric Symptoms Stated Complaint: AMS Time Seen by Provider: 12/24/23 13:45 Source: patient, police Mode of arrival: ambulatory - History of Present Illness Initial Comments: 58-year-old man presents to the emergency department accompanied by police. Patient was found in the middle of traffic. He states that he was attempting to stop trucks. He was standing in front of them stating "I need them". When questioning the patient he tells me that he was just trying to go to [employer] to get a "gale mini". He reports that he is supposed to be getting some pay out from the [place]. He states that he is part of a [place] and cannot be detained because of it. He is requesting we call has been dental about his dental implants. Patient has never been seen before for mental health. He denies abusing any drugs. - Related Data Home Medications Medication Instructions Recorded Confirmed No Known Home Medications 12/25/23 12/25/23 Allergies Allergy/AdvReac Type Severity Reaction Status Date / Time No Known Allergies Allergy Verified 12/25/23 01:33 Review of Systems ROS Statement: Those systems with pertinent positive or pertinent negative responses have been documented in the HPI. ROS Other: All systems not noted in ROS Statement are negative. Past Medical History Past Medical History: No Reported History History of Any Multi-Drug Resistant Organisms: None Reported Past Surgical History: No Surgical Hx Reported Past Anesthesia/Blood Transfusion Reactions: No Reported Reaction Past Psychological History: No Psychological Hx Reported Smoking Status: Current every day smoker Past Alcohol Use History: Occasional Past Drug Use History: Marijuana General Exam Limitations: altered mental status General appearance: alert, in no apparent distress Head exam: Present: atraumatic, normocephalic, normal inspection Eye exam: Present: normal appearance, PERRL, EOMI. Absent: scleral icterus, conjunctival injection, periorbital swelling ENT exam: Present: normal exam, mucous membranes moist Neck exam: Present: normal inspection. Absent: tenderness, meningismus, lymphadenopathy Respiratory exam: Present: normal lung sounds bilaterally. Absent: respiratory distress, wheezes, rales, rhonchi, stridor Cardiovascular Exam: Present: regular rate, normal rhythm, normal heart sounds. Absent: systolic murmur, diastolic murmur, rubs, gallop, clicks GI/Abdominal exam: Present: soft, normal bowel sounds. Absent: distended, tenderness, guarding, rebound, rigid Extremities exam: Present: normal inspection, full ROM, normal capillary refill. Absent: tenderness, pedal edema, joint swelling, calf tenderness Back exam: Present: normal inspection Neurological exam: Present: alert, oriented X3, CN II-XII intact Psychiatric exam: Present: manic Skin exam: Present: warm, dry, intact, normal color. Absent: rash Course Vital Signs 12/24/23 12/24/23 13:43 14:03 Temperature 98.7 F Pulse Rate 96 93 Respiratory 18 18 Rate Blood Pressure 191/112 118/94 O2 Sat by Pulse 98 100 Oximetry Medical Decision Making - Medical Decision Making Was pt. sent in by a medical professional or institution (, PA, PLANNER CHIEF, urgent care, hospital, or [place] health care facility...) When possible be specific @ -No Did you speak to anyone other than the patient for history (EMS, parent, family, police, friend...)? What history was obtained from this source @ -Spoke with police for history Did you review nursing and triage notes (agree or disagree)? Why? @ -I reviewed and agree with nursing and triage notes Were old charts reviewed (outside hosp., previous admission, EMS record, old EKG, old radiological studies, urgent care reports/EKG's, [place] health care facility records)? Report findings @ -No old charts were reviewed Differential Diagnosis (chest pain, altered mental status, abdominal pain women, abdominal pain men, vaginal bleeding, weakness, fever, dyspnea, syncope, headache, dizziness, GI bleed, back pain, seizure, CVA, palpatations, mental health, musculoskeletal)? @ -Differential Mental Health Depression, anxiety, bipolar, psychosis, schizophrenia, borderline personality, situational depression, adjustment disorder, behavioral disorder, brain tumor, malingering, substance abuse, encephalopathy, medication reaction, dementia, hypothyroidism, degenerative neurologic disorder, lupus.... This is not meant to be all-inclusive list EKG interpreted by me (3pts min.). @ -Not done X-rays interpreted by me (1pt min.). @ -None done CT interpreted by me (1pt min.). @ -None done U/S interpreted by me (1pt. min.). @ -None done What testing was considered but not performed or refused? (CT, X-rays, U/S, labs)? Why? @ -None What meds were considered but not given or refused? Why? @ -None Did you discuss the management of the patient with other professionals (professionals i.e. , PA, PLANNER CHIEF, lab, RT, psych nurse, medical social worker, addressograph operator, teacher, wildlife conservation officer, lead case manager)? Give summary @ -Spoke with the EPS nurse who will evaluate the patient Was smoking cessation discussed for >3mins.? @ -No Was critical care preformed (if so, how long)? @ -No Were there social determinants of health that impacted care today? How? (Homelessness, low income, unemployed, alcoholism, drug addiction, transportation, low edu. Level, literacy, decrease access to med. care, residential, rehab)? @ -No Was there de-escalation of care discussed even if they declined (Discuss DNR or withdrawal of care, Hospice)? DNR status @ -No What co-morbidities impacted this encounter? (DM, HTN, Smoking, COPD, CAD, Cancer, CVA, ARF, Chemo, Hep., AIDS, mental health diagnosis, sleep apnea, morbid obesity)? @ -None Was patient admitted / discharged? Hospital course, mention meds given and route, prescriptions, significant lab abnormalities, going to OR and other pertinent info. @ -Upon arrival patient seen and evaluated in room 7. I did obtain history from police. They did fill out a petition on the patient. Patient is made medically clear. He is evaluated by EPS and does require placement. Undiagnosed new problem with uncertain prognosis? @ -No Drug Therapy requiring intensive monitoring for toxicity (Heparin, Nitro, Insulin, Cardizem)? @ -No Were any procedures done? @ -No Diagnosis/symptom? @ -Acute psychosis Acute, or Chronic, or Acute on Chronic? @ -Acute Uncomplicated (without systemic symptoms) or Complicated (systemic symptoms)? @ -Complicated Side effects of treatment? @ -No Exacerbation, Progression, or Severe Exacerbation? @ -No Poses a threat to life or bodily function? How? (Chest pain, [place], [place], pneumonia, PE, COPD, DKA, ARF, appy, cholecystitis, CVA, Diverticulitis, Homicidal, Suicidal, threat to staff... and all critical care pts) @ -Yes as patient was in the middle of traffic because of his psychoses - Lab Data Result diagrams: 12/25/23 07:42 12/25/23 07:42 Lab Results 12/24/23 12/24/23 Range/Units 14:20 23:11 Urine Color Yellow Urine Appearance Cloudy (Clear) Urine pH 5.5 (5.0-8.0) Ur Specific [place] 1.027 (1.001-1.035) Urine Protein 1+ H (Negative) Urine Glucose (UA) Negative (Negative) Urine Ketones Trace H (Negative) Urine Blood Negative (Negative) Urine Nitrite Negative (Negative) Urine Bilirubin 1+ H (Negative) Urine Urobilinogen 3.0 (<2.0) mg/dL Ur Leukocyte Esterase Negative (Negative) Urine RBC 3 (0-5) /hpf Urine WBC 4 (0-5) /hpf Ur Squamous Epith Cells <1 (0-4) /hpf Amorphous Sediment Rare H (None) /hpf Cellular Casts 3 (0) /lpf Hyaline Casts 13 H (0-2) /lpf Urine Mucus Moderate H (None) /hpf Urine Opiates Screen Not Detected (NotDetected) Ur Oxycodone Screen Not Detected (NotDetected) Urine Methadone Screen Not Detected (NotDetected) Ur Barbiturates Screen Not Detected (NotDetected) U Tricyclic Antidepress Not Detected (NotDetected) Ur Phencyclidine Scrn Not Detected (NotDetected) Ur Amphetamines Screen Not Detected (NotDetected) U Methamphetamines Scrn Not Detected (NotDetected) U Benzodiazepines Scrn Not Detected (NotDetected) Urine Cocaine Screen Not Detected (NotDetected) U Marijuana (THC) Screen Detected H (NotDetected) SARS-CoV-2 (PCR) Not Detected (Not Detectd) Disposition Clinical Impression: Psychosis Disposition: TRANSFER TO PSYCH HOSP/UNIT Condition: Stable Is patient prescribed a controlled substance at d/c from ED?: No
[2023-12-25] MEDS ORDERED: haloperidoL 5 MG TAB PO PRN (01:29)
[2023-12-25] MEDS ORDERED: MAGNESIUM HYDROXIDE 2,400 MG/30 ML CUP PO PRN (01:29)
[2023-12-25] MEDS ORDERED: MAG HYDROX/AL HYDROX/SIMETH 355 ML BOTTLE PO PRN (01:29)
[2023-12-25] MEDS ORDERED: LORazepam 2 MG/ML INJ IM PRN (01:29)
[2023-12-25] MEDS ORDERED: HALOPERIDOL LACTATE 5 MG/ML 1 ML VIAL IM PRN (01:29)
[2023-12-25] MEDS: LORazepam 1 MG TAB PO PRN (03:35)
[2023-12-25] MEDS: traZODone HCL 50 MG TAB PO PRN (03:35)
[2023-12-25 03:43] VITALS: RESP 14; TEMP 98.4
[2023-12-25 08:11] LABS: Basophils % (A) 0 %; Eosinophils # (A) 0.5 k/uL (0-0.7); Eosinophils % (A) 6 %; HCT 39.6 % (39.0-53.0); HGB 13.4 gm/dL (13.0-17.5); Lymphocytes # (A) 2.7 k/uL (1.0-4.8); Lymphocytes % (A) 34 %; MCHC 33.8 g/dL (31.0-37.0); MCV 85.8 fL (80.0-100.0); Mean Platelet Volume 9.8; Monocytes # (A) 0.4 k/uL (0-1.0); Monocytes % (A) 5 %; Neutrophils # (A) 4.1 k/uL (1.3-7.7); Neutrophils % (A) 52 %; Platelet Count 170 k/uL (150-450); RBC 4.62 m/uL (4.30-5.90); RDW 13.9 % (11.5-15.5); WBC 7.9 k/uL (3.8-10.6)
[2023-12-25 08:26] LABS: ALT 11 U/L (4-49); AST 42 U/L (17-59); African American GFR (CKD) 86 (>60 ml/min/1.73 sqM); Albumin 3.7 g/dL (3.5-5.0); Alkaline Phosphatase 92 U/L (38-126); Anion Gap 7 mmol/L; Bilirubin, Delta 0.1 mg/dL (0.0-0.2); Bilirubin,Unconjugated 0.4 mg/dL (0.0-1.1); Blood Urea Nitrogen 20 mg/dL (9-20); Calcium 8.9 mg/dL (8.4-10.2); Carbon Dioxide 24 mmol/L (22-30); Chloride 104 mmol/L (98-107); Glucose 132 mg/dL (74-99); Non-African American GFR(CKD) 75 (>60 ml/min/1.73 sqM); Sodium 135 mmol/L (137-145); Total Bilirubin 0.5 mg/dL (0.2-1.3); Total Protein 6.7 g/dL (6.3-8.2)
[2023-12-25] MEDS: NICOTINE 14MG/24HR PATCH TRANSDERM SCH (09:02)
--- NOTE | 2023-12-25 13:38 | P.HP ---
Psychiatric H&P - . H&P Date: 12/25/23 History & Physical: Allergies Allergy/AdvReac Type Severity Reaction Status Date / Time No Known Allergies Allergy Verified 12/25/23 01:33 Vital Signs Temp 98.4 F 12/25/23 03:39 Pulse 56 L 12/25/23 03:39 Resp 14 12/25/23 03:39 BP 146/78 12/25/23 03:39 Pulse Ox 98 12/25/23 03:39 FiO2 Intake & Output 12/24/23 12/25/23 12/25/23 18:59 06:59 18:59 Weight 108.862 kg 100.839 kg Laboratory Last Values Urine Color Yellow 12/24/23 14:20 Urine Appearance Cloudy (Clear) 12/24/23 14:20 Urine pH 5.5 (5.0-8.0) 12/24/23 14:20 Ur Specific [place] 1.027 (1.001-1.035) 12/24/23 14:20 Urine Protein 1+ (Negative) H 12/24/23 14:20 Urine Glucose (UA) Negative (Negative) 12/24/23 14:20 Urine Ketones Trace (Negative) H 12/24/23 14:20 Urine Blood Negative (Negative) 12/24/23 14:20 Urine Nitrite Negative (Negative) 12/24/23 14:20 Urine Bilirubin 1+ (Negative) H 12/24/23 14:20 Urine Urobilinogen 3.0 mg/dL (<2.0) 12/24/23 14:20 Ur Leukocyte Esterase Negative (Negative) 12/24/23 14:20 Urine RBC 3 /hpf (0-5) 12/24/23 14:20 Urine WBC 4 /hpf (0-5) 12/24/23 14:20 Ur Squamous Epith Cells <1 /hpf (0-4) 12/24/23 14:20 Amorphous Sediment Rare /hpf (None) H 12/24/23 14:20 Cellular Casts 3 /lpf (0) 12/24/23 14:20 Hyaline Casts 13 /lpf (0-2) H 12/24/23 14:20 Urine Mucus Moderate /hpf (None) H 12/24/23 14:20 Urine Opiates Screen Not Detected (NotDetected) 12/24/23 14:20 Ur Oxycodone Screen Not Detected (NotDetected) 12/24/23 14:20 Urine Methadone Screen Not Detected (NotDetected) 12/24/23 14:20 Ur Barbiturates Screen Not Detected (NotDetected) 12/24/23 14:20 U Tricyclic Antidepress Not Detected (NotDetected) 12/24/23 14:20 Ur Phencyclidine Scrn Not Detected (NotDetected) 12/24/23 14:20 Ur Amphetamines Screen Not Detected (NotDetected) 12/24/23 14:20 U Methamphetamines Scrn Not Detected (NotDetected) 12/24/23 14:20 U Benzodiazepines Scrn Not Detected (NotDetected) 12/24/23 14:20 Urine Cocaine Screen Not Detected (NotDetected) 12/24/23 14:20 U Marijuana (THC) Screen Detected (NotDetected) H 12/24/23 14:20 SARS-CoV-2 (PCR) Not Detected (Not Detectd) 12/24/23 23:11 12/25/23 07:41 58-year-old man presents to the emergency department accompanied by police. Patient was found in the middle of traffic. He states that he was attempting to stop trucks. He was standing in front of them stating "I need them". When questioning the patient he tells me that he was just trying to go to [facility] to get a "gale mini". He reports that he is supposed to be getting some pay out from the [place]. He states that he is part of a [place] and cannot be detained because of it. He is requesting we call has been dental about his dental implants. Patient has never been seen before for mental health. He denies abusing any drugs. Labs drug screen shows that he is using marijuana, he also admits to heavy use of alcohol says he been trying to cut back recently getting off the whiskey and using beer instead and that is a cut down to 1 or 2 beers a day he is actually felt better. History of present illness patient says, "I don't know I just got a flipped out" however is flipping out was quite dangerous walking in traffic and could easily gotten hit And killed. He denies any past history of psychiatric treatment. Social history: The patient only child born to his parents were never got he says his mother is Ina and that his dad struggled with alcohol and he has 3/2 siblings from him but doesn't know them well mom never had any children she did whenthe patient was 14 but is now the patient wants to find a place to live with his mother here in the [place] area. His plan is to get out of the place where where he is at and mom get out of her place in the pool their resources and get a place in [place].very complicated as to where and how he was raised something about his stepsister was mother also raised the patient's biological mother. The patient says he has been drinking since he was young but that he is backed off in the last 10 days. 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 He has very little insight into what happened or why what can make sure it doesn't happen again but he feels that if he can get into an apartment with his mom he'll be fine. I gave him 3 things to remember and he could remember 3 of 3 things after 5 minutes. He crack a joke about having CRS syndrome. When asked him what that meant he said "can't Remember shit"he could name the presidents back to the elder Gan and can name all the [place] and no where they were. Concentration is still impaired when asked to spell world backward he is able do so by spelling out on his fingers and reading his fingers backward he is the same track to subtract 7 from 93 he could see the cats and snakes of both sneaky and the attack when provoked for the grass is greener on the side defense he said, "pay attention to your own things". He denies suicidality or homicidality he says he is not sure why he was walking in traffic and he knows he was not suicidal. Were going to continue the trazodone and adenoidal melatonin as he did sleep better last night on that and is willing to take. 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
[2023-12-25 14:54] LABS: Chol/HDL Ratio 3.04 Ratio
[2023-12-25] MEDS: IBUPROFEN 600 MG TAB PO PRN (15:44)
[2023-12-25] MEDS: NICOTINE GUM (POLACRILEX) 2 MG GUM BUCCAL PRN (16:21)
[2023-12-25] MEDS: cloNIDine HCL 0.2 MG TAB PO PRN (20:34)
[2023-12-25] MEDS: traZODone HCL 100 MG TAB PO SCH (21:34)
[2023-12-25] MEDS: MELATONIN 1 MG TAB PO SCH (21:34)
[2023-12-25] MEDS ORDERED: DEXTROSE 50% SYRINGE 50 ML IVP PRN ×2 (22:58)
--- NOTE | 2023-12-26 00:08 | P.MDCNMH ---
<Marbella Su - Last Filed: 12/25/23 23:42> History of Present Illness H&P Date: 12/25/23 Patient is a 58-year-old male with a history of CAD (cathx 1 stent in 2021), and current alcohol use (last drink 12/23/2023. No history of DTs.) who came in to the ED accompanied by police. Patient was found in the middle of traffic attempting to stop trucks so that he can get a ride to buy alcohol at [employer]. He complained of swelling of left inguinal area that he has had for about 4 years, occurs when he coughs or bears down, and is reducible with associated intermittent dull pain with a maximum intensity of 3/10. He denied abdominal pain, constipation, diarrhea, nausea or vomiting, hematochezia, hematemesis, dysuria, hematuria, urinary hesitancy, or urinary urgency. Review of systems: Pertinent positives and negatives as discussed in HPI, a complete review of systems was performed and all other systems are negative. Physical examination: Vital signs reviewed General: non toxic, no distress, appears at stated age Derm: no unusual rashes/lesions, warm Head: atraumatic, normocephalic, symmetric Eyes: EOMI, anicteric sclera, pupils equal round reactive to light ENT: Nose and ears atraumatic Neck: supple, no masses or lesions, trachea midline, Mouth: no lip lesion, mucus membranes moist Cardiovascular: S1S2 reg, no murmur Lungs: CTA bilateral, no rhonchi, no rales, no accessory muscle use Abdominal: soft, nontender to palpation, no guarding, left inguinal mass mobile, nontender, no erythema Ext: no gross muscle atrophy, no contractures, positive dorsalis pedis pulse bilateral, no edema Neuro: CN II-XI grossly intact, no gross focal neuro deficits Psych: Alert, oriented, to person, place and time Assessment/Plan: #. Type II diabetes mellitus Glucose elevated 132. A1c elevated at 6.8. -Insulin sliding scale > 70 kg ACHS -POC glucose checks ACHS #. Hypertriglyceridemia Triglycerides elevated 152 -Lipitor 40 mg p.o. at bedtime #. Inguinal hernia, chronic Patient stable and asymptomatic. -Tylenol/50 mg p.o. every 4 hours as needed for pain -Advised outpatient management and follow-up. Educated patient that if mass becomes unreducible or intolerable pain develops, he should go to ER. #. 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 Thank you for this consult. Past Medical History Past Medical History: No Reported History History of Any Multi-Drug Resistant Organisms: None Reported Past Surgical History: Heart Catheterization With Stent Additional Past Surgical History / Comment(s): Heart Cath /c one stent approximately 2021 Past Anesthesia/Blood Transfusion Reactions: No Reported Reaction Date of Last Stent Placement:: 2021 Past Psychological History: No Psychological Hx Reported Smoking Status: Current every day smoker Past Alcohol Use History: Daily, Heavy Additional Past Alcohol Use History / Comment(s): Pt states drank between one pint and a fifth of liquor x40 years; quit 8 days ago 12/17/2023 and switched to beer and wine. Past Drug Use History: Marijuana Medications and Allergies Home Medications Medication Instructions Recorded Confirmed Type No Known Home Medications 12/25/23 12/25/23 History Allergies Allergy/AdvReac Type Severity Reaction Status Date / Time No Known Allergies Allergy Verified 12/25/23 01:33 Physical Exam Vitals: Vital Signs Temp Pulse Resp BP BP BP Pulse Ox 12/25/23 21:37 60 186/87 98 12/25/23 20:12 203/106 202/111 12/25/23 03:39 98.4 F 56 L 14 146/78 98 Cranial Nerve Examination - Cranial Nerves Cranial Nerve I- Olfactory: Intact Cranial Nerve II- Optic: Intact Cranial Nerve III- Oculomotor: Intact Cranial Nerve IV- Trochlear: Intact Cranial Nerve V- Trigeminal: Intact Cranial Nerve - Abducens: Intact Cranial Nerve VII- Facial: Intact Cranial Nerve VIII- Auditory: Intact Cranial Nerve IX- Glossopharyngeal: Intact Cranial Nerve X- Vagus: Intact Cranial Nerve XI- Accessory: Intact Cranial Nerve XII- Hypoglossal: Intact Results CBC & Chem 7: 12/25/23 07:42 12/25/23 07:42 Labs: Abnormal Lab Results - Last 24 Hours (Table) 12/25/23 12/25/23 Range/Units 07:42 07:42 Sodium 135 L (137-145) mmol/L Glucose 132 H (74-99) mg/dL Hemoglobin A1c 6.8 H (<=6.0) % Triglycerides 152.00 H (0.00-149.00) mg/dL <Shailesh Herrera M - Last Filed: 12/26/23 00:11> Physical Exam Vitals: Vital Signs Temp Pulse Resp BP BP BP Pulse Ox 12/25/23 21:37 60 186/87 98 12/25/23 20:12 203/106 202/111 12/25/23 03:39 98.4 F 56 L 14 146/78 98 Results CBC & Chem 7: 12/25/23 07:42 12/25/23 07:42 Labs: Abnormal Lab Results - Last 24 Hours (Table) 12/25/23 12/25/23 Range/Units 07:42 07:42 Sodium 135 L (137-145) mmol/L Glucose 132 H (74-99) mg/dL Hemoglobin A1c 6.8 H (<=6.0) % Triglycerides 152.00 H (0.00-149.00) mg/dL Assessment and Plan Assessment: I have seen and evaluated the patient today. I Discussed the case with the resident and agree with the resident's findings I edited the assessment and plan as necessary as documented in the resident's note.
[2023-12-26] MEDS: BENZOCAINE/MENTHOL LOZENG 1 EACH LOZENGE MUCOUS MEM PRN (05:47)
[2023-12-26 07:56] LABS: Glucose,Whole Blood 138 mg/dL (70-110)
[2023-12-26] MEDS: INSULIN ASPART (NovoLOG) 100 UNIT/ML VIAL SQ SCH (07:56)
--- NOTE | 2023-12-26 11:02 | P.PN ---
Subjective Progress Note Date: 12/26/23 58-year-old man we'll came in with a lot of grandiosity confusion and psychosis this seems to be clearing he still has some pressure and rambling Labs drug screen shows that he is using marijuana, he also admits to heavy use of alcohol says he been trying to cut back recently getting off the whiskey and using beer instead and that is a cut down to 1 or 2 beers a day he is actually felt better. History of present illness patient says, "I don't know I just got a flipped out" however is flipping out was quite dangerous walking in traffic and could easily gotten hit And killed. He denies any past history of psychiatric treatment. Social history: The patient is the only child born to his parents who were never got he says his mother is Kyrie and that his dad struggled with alcohol and . He has 3 1/2 siblings from his father but doesn't know them well. His mom never had any children she did when the patient was 14 but is now . The patient wants to find a place to live with his mother here in the [place] area. His plan is to get out of the place where where he is at and mom get out of her place and pool their resources and get a place in [place]. The patient says he has been drinking since he was young but that he is backed off in the last 10 days. 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 School: he completed high school and also some technical training in laying carpets. [employer] Supports he gets along with his nephew's he enjoys fishing and bowling and ba sketball. Mental status exam: The patient stated be gradually calming down all he is still somewhat pressured. he is pleasant and cooperative somewhat pressured rambling and gave way too much excessive detail could not seem to understand that had nothing to do with what we are talking about. He has very little insight into what happened or why what can make sure it doesn't happen again but he feels that if he can get into an apartment with his mom he'll be fine. I gave him 3 things to remember and he could remember 3 of 3 things after 5 minutes. He crack a joke about having CRS syndrome. When asked him what that meant he said "can't Remember shit"he could name the presidents back to the elder [place] and can name all the [place] and no where they were. Concentration is still impaired when asked to spell world backward he is able do so by spelling out on his fingers and reading his fingers backward he is the same track to subtract 7 from 93 he could see the cats and snakes of both sneaky and the attack when provoked for the grass is greener on the side defense he said, "pay attention to your own things". He denies suicidality or homicidality he says he is not sure why he was walking in traffic and he knows he was not suicidal. Were going to continue the trazodone and melatonin as he did sleep well last night. Assessment brief reactive psychosis triggered by alcohol use and withdrawal Plan: No change in medicines. I don't think he'll need to be here long He still rambles and gives excess detail Objective - Vital Signs Vital signs: Vital Signs Temp 98.4 F 12/25/23 03:39 Pulse 66 12/26/23 06:53 Resp 14 12/25/23 03:39 BP 155/90 12/26/23 06:53 Pulse Ox 98 12/25/23 21:37 FiO2 Intake & Output 12/25/23 12/26/23 12/26/23 18:59 06:59 18:59 Weight 102 kg - Labs CBC & Chem 7: 12/25/23 07:42 12/25/23 07:42 Labs: Abnormal Lab Results - Last 24 Hours (Table) 12/25/23 12/25/23 12/26/23 Range/Units 07:42 07:42 07:54 POC Glucose (mg/dL) 138 H (70-110) mg/dL Hemoglobin A1c 6.8 H (<=6.0) % Triglycerides 152.00 H (0.00-149.00) mg/dL
[2023-12-26 12:58] LABS: Glucose,Whole Blood 119 mg/dL (70-110)
[2023-12-26 17:50] LABS: Glucose,Whole Blood 106 mg/dL (70-110)
[2023-12-26 21:08] LABS: Glucose,Whole Blood 144 mg/dL (70-110)
[2023-12-26] MEDS: ATORVASTATIN 40 MG TAB PO SCH (22:29)
[2023-12-27 06:45] VITALS: BP 171/99; PULSE 73
[2023-12-27] MEDS: ACETAMINOPHEN TAB 325 MG TAB PO PRN (07:26)
[2023-12-27 07:42] LABS: Glucose,Whole Blood 122 mg/dL (70-110)
[2023-12-27 12:50] LABS: Glucose,Whole Blood 128 mg/dL (70-110)
--- NOTE | 2023-12-27 17:50 | P.DS ---
Providers Date of admission: 12/25/23 01:18 Expected date of discharge: 12/27/23 Attending physician: Puma Telles MD Consults: 12/25/23 01:29 Consult Physician Routine Consulting Provider: Estrellita Chester Consult Reason/Comments: For H & P for Medical Follow Up Do you want consulting provider notified?: Yes Primary care physician: Stated None Hospital Course: Admission HPI: Admission note was completed by Dr. Farris: "58-year-old man presents to the emergency department accompanied by police. Patient was found in the middle of traffic. He states that he was attempting to stop trucks. He was standing in front of them stating "I need them". When questioning the patient he tells me that he was just trying to go to [employer] to get a "gale mini". He reports that he is supposed to be getting some pay out from the [place]. He states that he is part of a [employer] [place] and cannot be detained because of it. He is requesting we call has been dental about his dental implants. Patient has never been seen before for mental health. He denies abusing any drugs. Labs drug screen shows that he is using marijuana, he also admits to heavy use of alcohol says he been trying to cut back recently getting off the whiskey and using beer instead and that is a cut down to 1 or 2 beers a day he is actually felt better. History of present illness patient says, "I don't know I just got a flipped out" however is flipping out was quite dangerous walking in traffic and could easily gotten hit And killed. He denies any past history of psychiatric treatment. Social history: The patient only child born to his parents were never got he says his mother is Ina and that his dad struggled with alcohol and he has 3/2 siblings from him but doesn't know them well mom never had any children she did whenthe patient was 14 but is now the patient wants to find a place to live with his mother here in the [place] area. His plan is to get out of the place where where he is at and mom get out of her place in the pool their resources and get a place in [place].very complicated as to where and how he was raised something about his stepsister was mother also raised the patient's biological mother. The patient says he has been drinking since he was young but that he is backed off in the last 10 days. 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 He has very little insight into what happened or why what can make sure it doesn't happen again but he feels that if he can get into an apartment with his mom he'll be fine. I gave him 3 things to remember and he could remember 3 of 3 things after 5 minutes. He crack a joke about having CRS syndrome. When asked him what that meant he said "can't Remember shit"he could name the presidents back to the elder [place] and can name all the [place] and no where they were. Concentration is still impaired when asked to spell world backward he is able do so by spelling out on his fingers and reading his fingers backward he is the same track to subtract 7 from 93 he could see the cats and snakes of both sneaky and the attack when provoked for the grass is greener on the side defense he said, "pay attention to your own things". He denies suicidality or homicidality he says he is not sure why he was walking in traffic and he knows he was not suicidal. Were going to continue the trazodone and adenoidal melatonin as he did sleep better last night on that and is willing to take. Assessment brief reactive psychosis triggered by alcohol use and withdrawal Plan I don't think he'll need to be here long but he needs a couple more nights of sleep and slowing down and more logic and a good clear plan for after discharge will also need to contact his supports and family members to make sure that this does not delusional" Hospital course: Upon admission to the unit patient was directable and agreeable to commence treatment and signed adult voluntary form. Patient got along well with other patients on the unit and followed unit protocol. Patient was compliant with the medications and denied any side effects throughout hospital course. Patient was started on Trazodone 100 mg QHS and Melatonin 2 mg QHS. Patient spoke of his stressors and engaged in therapy both group and individual. Patient was also seen by medical team for history and physical exam. Throughout the course of the hospitalization patient gradually improved with regards to mood, anxiety, sleep and returned back to their baseline level of functioning. On the day of discharge patient denied any suicidal or homicidal ideation, intent or plan denied any auditory or visual hallucinations. Patient endorsed wanting to live for his health and family. He is looking forward to going back to work tomorrow. The patient denied any access to guns or weapons. Patient denied any paranoia and did not endorse any delusions. Patient does have a significant history of alcohol abuse and was counseled on abstaining from all substances including alcohol and marijuana. Patient elected to do outpatient substance use treatment program through [facility]. Patient was also counseled on the medications and need for regular compliance and was encouraged to follow-up with their outpatient appointment for mental health and also for primary care. Mental status exam: General Appearance: Patient appears to be stated age is alert, pleasant, and cooperative. Patient is in no acute distress and has improved hygiene and grooming. Behavior: Patient is calmly standing without any agitated behavior. Speech: Patient's speech is fluent and non-pressured. Mood/Affect: Patient reports their mood is "better", affect is congruent and euthymic. Suicidality/Homicidality: Patient denies having any suicidal or homicidal ideation intent or plan. Perceptions: Patient denies any auditory or visual hallucinations. Though content/process: There is no evidence of any delusional thought content and thought process is linear and goal-directed. Memory and concentration: AOX3, grossly intact for the purposes of this session. Judgment and insight: improved, average Impression: Brief psychotic disorder r/o substance (alcohol) induced psychotic disorder with onset during withdrawal Alcohol use disorder Tobacco use disorder Plan: -Continue with discharge today as patient has improved and stabilized psychiatrically and is not currently an imminent threat to himself and/or others. Patient will remain at chronically elevated risk for harm to self and/or others due to his impulsivity and alcohol dependence. -Continue medications: Trazodone 100 mg QHS for sleep Melatonin 2 mg QHS for sleep He should resume the Carvedilol (unknown dose) that he takes at home for hypertension. -Patient was counseled on the need for medication compliance and appropriate follow-up at mental health and also primary care for medical issues. Patient verbalized understanding and agreed. -Social work also to arrange for patients follow up appointments with [facility] for psychiatric care along with follow up with primary care provider. -Patient counseled on abstaining from recreational drugs and alcohol. Was informed/educated on the adverse effects on their physical and mental health. Patient verbally agreed and understood. -Patient was instructed to return to the hospital or seek immediate medical care if their psychiatric or medical symptoms do worsen or reoccur. Laboratory Results WBC 7.9 k/uL (3.8-10.6) 12/25/23 07:42 RBC 4.62 m/uL (4.30-5.90) 12/25/23 07:42 Hgb 13.4 gm/dL (13.0-17.5) 12/25/23 07:42 Hct 39.6 % (39.0-53.0) 12/25/23 07:42 MCV 85.8 fL (80.0-100.0) 12/25/23 07:42 MCH 29.0 pg (25.0-35.0) 12/25/23 07:42 MCHC 33.8 g/dL (31.0-37.0) 12/25/23 07:42 RDW 13.9 % (11.5-15.5) 12/25/23 07:42 Plt Count 170 k/uL (150-450) 12/25/23 07:42 MPV 9.8 12/25/23 07:42 Neutrophils % 52 % 12/25/23 07:42 Lymphocytes % 34 % 12/25/23 07:42 Monocytes % 5 % 12/25/23 07:42 Eosinophils % 6 % 12/25/23 07:42 Basophils % 0 % 12/25/23 07:42 Neutrophils # 4.1 k/uL (1.3-7.7) 12/25/23 07:42 Lymphocytes # 2.7 k/uL (1.0-4.8) 12/25/23 07:42 Monocytes # 0.4 k/uL (0-1.0) 12/25/23 07:42 Eosinophils # 0.5 k/uL (0-0.7) 12/25/23 07:42 Basophils # 0.0 k/uL (0-0.2) 12/25/23 07:42 Sodium 135 mmol/L (137-145) L 12/25/23 07:42 Potassium 4.0 mmol/L (3.5-5.1) 12/25/23 07:42 Chloride 104 mmol/L (98-107) 12/25/23 07:42 Carbon Dioxide 24 mmol/L (22-30) 12/25/23 07:42 Anion Gap 7 mmol/L 12/25/23 07:42 BUN 20 mg/dL (9-20) 12/25/23 07:42 Creatinine 1.09 mg/dL (0.66-1.25) 12/25/23 07:42 Est GFR (CKD-EPI)AfAm 86 (>60 ml/min/1.73 sqM) 12/25/23 07:42 Est GFR (CKD-EPI)NonAf 75 (>60 ml/min/1.73 sqM) 12/25/23 07:42 Glucose 132 mg/dL (74-99) H 12/25/23 07:42 POC Glucose (mg/dL) 128 mg/dL (70-110) H 12/27/23 12:49 POC Glu Metrology Manager ID Yuval Alvarenga 12/27/23 12:[address] Glu mg/dL 148 mg/dL 12/25/23 07:42 Hemoglobin A1c 6.8 % (<=6.0) H 12/25/23 07:42 Calcium 8.9 mg/dL (8.4-10.2) 12/25/23 07:42 Total Bilirubin 0.5 mg/dL (0.2-1.3) 12/25/23 07:42 Conjugated Bilirubin 0.0 mg/dL (0.0-0.3) 12/25/23 07:42 Unconjugated Bilirubin 0.4 mg/dL (0.0-1.1) 12/25/23 07:42 Delta Bilirubin 0.1 mg/dL (0.0-0.2) 12/25/23 07:42 AST 42 U/L (17-59) 12/25/23 07:42 ALT 11 U/L (4-49) 12/25/23 07:42 Alkaline Phosphatase 92 U/L (38-126) 12/25/23 07:42 Total Protein 6.7 g/dL (6.3-8.2) 12/25/23 07:42 Albumin 3.7 g/dL (3.5-5.0) 12/25/23 07:42 Triglycerides 152.00 mg/dL (0.00-149.00) H 12/25/23 07:42 Cholesterol 169.00 mg/dL (0.00-200.00) 12/25/23 07:42 LDL Cholesterol, Calc 83.0 mg/dL (0.0-131.0) 12/25/23 07:42 VLDL Cholesterol, Calc 30.40 mg/dL (5.00-40.00) 12/25/23 07:42 HDL Cholesterol 55.60 mg/dL (40.00-60.00) 12/25/23 07:42 Cholesterol/HDL Ratio 3.04 Ratio 12/25/23 07:42 TSH 0.934 mIU/L (0.465-4.680) 12/25/23 07:42 Urine Color Yellow 12/24/23 14:20 Urine Appearance Cloudy (Clear) 12/24/23 14:20 Urine pH 5.5 (5.0-8.0) 12/24/23 14:20 Ur Specific [place] 1.027 (1.001-1.035) 12/24/23 14:20 Urine Protein 1+ (Negative) H 12/24/23 14:20 Urine Glucose (UA) Negative (Negative) 12/24/23 14:20 Urine Ketones Trace (Negative) H 12/24/23 14:20 Urine Blood Negative (Negative) 12/24/23 14:20 Urine Nitrite Negative (Negative) 12/24/23 14:20 Urine Bilirubin 1+ (Negative) H 12/24/23 14:20 Urine Urobilinogen 3.0 mg/dL (<2.0) 12/24/23 14:20 Ur Leukocyte Esterase Negative (Negative) 12/24/23 14:20 Urine RBC 3 /hpf (0-5) 12/24/23 14:20 Urine WBC 4 /hpf (0-5) 12/24/23 14:20 Ur Squamous Epith Cells <1 /hpf (0-4) 12/24/23 14:20 Amorphous Sediment Rare /hpf (None) H 12/24/23 14:20 Cellular Casts 3 /lpf (0) 12/24/23 14:20 Hyaline Casts 13 /lpf (0-2) H 12/24/23 14:20 Urine Mucus Moderate /hpf (None) H 12/24/23 14:20 Urine Opiates Screen Not Detected (NotDetected) 12/24/23 14:20 Ur Oxycodone Screen Not Detected (NotDetected) 12/24/23 14:20 Urine Methadone Screen Not Detected (NotDetected) 12/24/23 14:20 Ur Barbiturates Screen Not Detected (NotDetected) 12/24/23 14:20 U Tricyclic Antidepress Not Detected (NotDetected) 12/24/23 14:20 Ur Phencyclidine Scrn Not Detected (NotDetected) 12/24/23 14:20 Ur Amphetamines Screen Not Detected (NotDetected) 12/24/23 14:20 U Methamphetamines Scrn Not Detected (NotDetected) 12/24/23 14:20 U Benzodiazepines Scrn Not Detected (NotDetected) 12/24/23 14:20 Urine Cocaine Screen Not Detected (NotDetected) 12/24/23 14:20 U Marijuana (THC) Screen Detected (NotDetected) H 12/24/23 14:20 SARS-CoV-2 (PCR) Not Detected (Not Detectd) 12/24/23 23:11 Vital Signs (72 hours) 12/25/23 12/25/23 12/25/23 03:39 20:12 21:37 Temperature 98.4 F Pulse Rate [ 56 L 60 Left Sitting] Respiratory 14 Rate Blood Pressure 146/78 186/87 [Left Arm Sitting] Blood Pressure 203/106 [Left Arm Standing] Blood Pressure 202/111 [Right Arm Standing] O2 Sat by Pulse 98 98 Oximetry 12/26/23 12/27/23 06:53 06:44 Temperature Pulse Rate [ 66 73 Left Sitting] Respiratory Rate Blood Pressure [Left Arm Sitting] Blood Pressure 171/99 [Left Arm Standing] Blood Pressure 155/90 [Right Arm Standing] O2 Sat by Pulse Oximetry Patient Condition at Discharge: Stable Plan - Discharge Summary Discharge Rx Participant: Yes New Discharge Prescriptions: New Atorvastatin [Lipitor] 40 mg PO HS tab Melatonin 2 mg PO HS 30 Days #60 tab Nicotine Gum (Polacrilex) [Nicorette] 2 mg BUCCAL Q4HR PRN 30 Days #120 pieceofgum PRN Reason: Nicotine Cravings traZODone HCL [Desyrel] 100 mg PO HS 30 Days #30 tab Nicotine 14Mg/24Hr Patch [Habitrol] 1 patch TRANSDERM DAILY 30 Days #30 patch cloNIDine HCL [Catapres] 0.1 mg PO BID PRN 7 Days #14 tab PRN Reason: Hypertension Discharge Medication List Atorvastatin [Lipitor] 40 mg PO HS tab 12/27/23 [Rx] Melatonin 2 mg PO HS 30 Days #60 tab 12/27/23 [Rx] Nicotine 14Mg/24Hr Patch [Habitrol] 1 patch TRANSDERM DAILY 30 Days #30 patch 12/27/23 [Rx] Nicotine Gum (Polacrilex) [Nicorette] 2 mg BUCCAL Q4HR PRN 30 Days #120 pieceofgum 12/27/23 [Rx] cloNIDine HCL [Catapres] 0.1 mg PO BID PRN 7 Days #14 tab 12/27/23 [Rx] traZODone HCL [Desyrel] 100 mg PO HS 30 Days #30 tab 12/27/23 [Rx] Follow up Appointment(s)/Referral(s): [facility] [Outside] - 01/03/24 9:30 am (01/02 at 930 with Marian) [facility]] - 1 Week Patient Instructions/Handouts: How to Stop Smoking (DC), Brief Psychotic Disorder (DC), Abuse of Alcohol (ED) Activity/Diet/Wound Care/Special Instructions: [facility] Discharge Info Avoid the use of street drugs and alcohol. Take all medications as prescribed. When you are in need of refills on your medications, please contact your outpatient medical provider and/or outpatient psychiatrist. Please go to your scheduled outpatient appointments for aftercare treatment. If symptoms return or become worse, call the crisis line at or and/or visit the nearest emergency room for assistance. National Suicide and Crisis Lifeline - call or text 831. Discharge Disposition: HOME SELF-CARE
== END 2023-12-27 17:55 | disposition home or self-care (01) | DRG 751 ==
LOC: EC 13:39 → 3MHU 12-25 01:18
PROVIDERS: ADMIT Psychiatry & Neurology Psychiatry; ATTEND Psychiatry & Neurology Psychiatry
DX: F23 Brief psychotic disorder (principal); E11.9 Type 2 diabetes mellitus without complications; E78.1 Pure hyperglyceridemia; F10.20 Alcohol dependence, uncomplicated; F17.200 Nicotine dependence, unspecified, uncomplicated; F41.9 Anxiety disorder, unspecified; I10 Essential (primary) hypertension; I25.10 Atherosclerotic heart disease of native coronary artery without angina pectoris; K40.90 Unilateral inguinal hernia, without obstruction or gangrene, not specified as recurrent; Z79.899 Other long term (current) drug therapy; Z11.52 Encounter for screening for COVID-19
CPT/HCPCS: 80053; 80061; 80306; 81001; 82075; 82248; 83036; 84443; 85025; 87635; 99285